=== PATIENT | female | born 1975 | race Hispanic/Latino ===

== ENCOUNTER 2016-04-06 08:36 | Emergency (ER) | payer MEDICARE ==
[2016-04-06 08:45] VITALS: BP 136/96
--- NOTE | 2016-04-06 14:20 | XRay Report ---
ROUTINE CHEST, TWO VIEWS: HISTORY: Cough. The trachea, heart, mediastinal contour, lung abdalla and bony thorax are unremarkable. IMPRESSION: Unremarkable chest x-ray.
--- NOTE | 2016-04-06 14:37 | Emergency Department Report ---
HPI - General Chief Complaint: Upper Respiratory Infection Time Seen by Provider: 04/06/16 13:03 - HPI HPI: 41-year-old female presents today with sore throat and cough for greater than 1 month. Patient states that his symptoms worsened 3 days ago and she started having chest pain associated with her cough. Primary care provider prescribed her a Z-Gregorio and cough medicine one month ago which relieved her symptoms but the symptoms worsened again. Patient is not treating herself with Ana-Mallory and Tylenol without relief. Patient states her was diagnosed with pneumonia and hospitalized a month ago. Denies fever, chills, shortness of breath, nausea, vomiting, abdominal pain. ED Past Medical Hx - Past Medical History Previous Medical History?: Yes Hx Hypertension: Yes (OFF MEDS) Hx Asthma: No Additional medical history: DDD (BACK). AFIB - Surgical History Past Surgical History?: Yes Hx Cholecystectomy: Yes Additional Surgical History: Hysterectomy, 2 . LAP BAND - Social History Smoking Status: Never Smoker Substance Use Type: Prescribed, Other - Medications Home Medications: Home Medications Medication Instructions Recorded Confirmed Last Taken Type Ferrous Sulfate [Iron Supplement] 325 mg PO TID 04/10/13 04/10/15 04/10/15 History ALPRAZolam [Xanax TAB] 1 mg PO BID #30 tablet 04/14/15 Unknown Rx Bisoprolol Fumarate [Zebeta] 10 mg PO DAILY #30 tab 04/14/15 Unknown Rx Digoxin [Lanoxin] 0.125 mg PO DAILY #30 tablet 04/14/15 Unknown Rx oxyCODONE /ACETAMINOPHEN [Percocet 1 tab PO Q6HR PRN #30 tablet 04/14/15 Unknown Rx 5/325 mg] Loratadine [Claritin] 10 mg PO DAILY #30 tablet 05/09/15 Unknown Rx Prednisone [predniSONE 10 mg 10 mg PO .TAPER #1 tab.ds.pk 05/09/15 Unknown Rx (6-Day Pack, 21 Tabs)] Promethazine /Codeine 5 ml PO Q6H PRN #150 ml 05/09/15 Unknown Rx [Phenergan/Codeine 6.25-10 mg/5 ml] Sulfamethoxazole/Trimethoprim 1 each PO BID #20 tablet 05/09/15 Unknown Rx [Bactrim DS TAB] Albuterol Sulfate [Ventolin HFA] 2 puff IH Q4H PRN #1 hfa.aer.ad 04/06/16 Unknown Rx Fluticasone (Nf) [Flovent Hfa(Nf)] 2 puff IH BID #1 puff 04/06/16 Unknown Rx guaiFENesin/DEXTROMETHORPHAN 1 each PO Q12H #30 tbmp.12hr 04/06/16 Unknown Rx [Mucinex Dm ER 1,200-60 mg Tab] ED Review of Systems ROS: Stated complaint: COUGHING WITH CHEST PAIN Other details as noted in HPI Constitutional: denies: chills, fever, malaise Eyes: denies: eye pain ENT: throat pain. denies: ear pain, congestion Respiratory: cough. denies: shortness of breath, wheezing Cardiovascular: denies: chest pain, palpitations Endocrine: no symptoms reported Gastrointestinal: denies: abdominal pain, nausea, vomiting Skin: denies: rash Neurological: denies: headache, weakness Physical Exam - Physical Exam Vital Signs: Vital Signs 04/06/16 08:41 Temperature 97.6 F Pulse Rate 79 Respiratory 18 Rate Blood Pressure 136/96 O2 Sat by Pulse 99 Oximetry Physical Exam: GENERAL: The patient is well-developed and well-nourished. Patient is in NAD. HEAD: Normocephalic. Atraumatic. EYES: PERRL. EARS: External auditory canals and tympanic membranes clear; hearing grossly intact. NOSE: Normal nasal mucosa with no nasal discharge. THROAT: No erythema, swelling or exudates. NECK: Supple, nontender, without lymphadenopathy. CHEST/LUNGS: Clear to auscultation throughout. HEART/CARDIOVASCULAR: Regular rate and rhythm. No murmurs, rubs or gallops. ABDOMEN: Abdomen is soft, nontender. Bowel sounds normoactive. No guarding or rebound tenderness. EXTREMITIES: Peripheral pulses intact. Capillary refill less than 2 seconds. ED Course Vital Signs 04/06/16 08:41 Temperature 97.6 F Pulse Rate 79 Respiratory 18 Rate Blood Pressure 136/96 O2 Sat by Pulse 99 Oximetry ED Medical Decision Making - Lab Data Vital Signs 04/06/16 08:41 Temperature 97.6 F Pulse Rate 79 Respiratory 18 Rate Blood Pressure 136/96 O2 Sat by Pulse 99 Oximetry - Radiology Data Radiology results: report reviewed Chest x-ray: The trachea, heart, mediastinal contour, lung abdalla and bony thorax are unremarkable. - Medical Decision Making 41-year-old female presents today with prolonged sore throat and cough. Her chest x-ray was unremarkable.Patient is in no acute distress at this time. She will be discharged home and is encouraged to follow up with a primary care provider. Will be sent home on albuterol, Flovent, Mucinex DM and is encouraged to return to the emergency room for any worsening symptoms. Critical care attestation.: If time is entered above; I have spent that time in minutes in the direct care of this critically ill patient, excluding procedure time. ED Disposition Clinical Impression: Bronchitis Disposition: DISCHARGED TO HOME OR SELFCARE Is pt being admited?: No Does the pt Need Aspirin: No Condition: Stable Instructions: Acute Bronchitis (ED) Additional Instructions: Follow with primary care provider. Return to the emergency department if symptoms worsen. Prescriptions: Fluticasone (Nf) [Flovent Hfa(Nf)] 2 puff IH BID #1 puff guaiFENesin/DEXTROMETHORPHAN [Mucinex Dm ER 1,200-60 mg Tab] 1 each PO Q12H #30 tbmp.12hr Albuterol Sulfate [Ventolin HFA] 2 puff IH Q4H PRN #1 hfa.aer.ad PRN Reason: Shortness Of Breath Referrals: ORLY ROSARIO MD [Primary Care Provider] - 3-5 Days [facility] [Outside] - 3-5 Days Forms: Work/School Release Form(ED) Time of Disposition: 14:38
== END 2016-04-06 14:49 | disposition home or self-care (01) ==
LOC: ED 08:36
DX: J40 Bronchitis, not specified as acute or chronic (principal); J02.9 Acute pharyngitis, unspecified; I10 Essential (primary) hypertension; I48.91 Unspecified atrial fibrillation
CPT/HCPCS: 71020; 99283

== ENCOUNTER 2017-04-02 10:51 | Emergency (ER) | payer MEDICARE ==
[2017-04-02] MEDS ORDERED: ASPIRIN PO ONE (12:24)
--- NOTE | 2017-04-02 12:31 | Emergency Department Report ---
ED Chest Pain HPI - General Chief Complaint: Chest Pain Stated Complaint: cough and pain with cough Time Seen by Provider: 04/02/17 12:31 Source: patient, RN notes reviewed, old records reviewed Mode of arrival: Ambulatory Limitations: No Limitations - History of Present Illness -: Gradual, week(s) Onset: during rest, during exertion Pain Location: other (epigastric radiating up both sides right and left chest) Severity: mild Severity scale (0 -10): 7 Quality: sharp Consistency: intermittent (pleuritic-type pain) Improves With: nothing, other Worsens With: other (deep breath) Context: other ( in January) re: denies: nausea, vomting, diaphoresis, dyspnea, sense of impending doom Other Symptoms: cough, palpitations. denies: fever, syncope, rash, acid taste in mouth, leg swelling, burping (this is an acute and chronic issue for the patient she's been told she has SVT and at one point was on digoxin) Treatments Prior to Arrival: none Aspirin use within the Past 7 Days: (0) No - Related Data On Oral Contraceptives: No Previous Rx's Medication Instructions Recorded Last Taken Type ALBUTEROL Inhaler [ProAir HFA 2 puff IH QID PRN #1 inhalation 04/02/17 Unknown Rx Inhaler] Benzonatate [Tessalon Perles] 100 mg PO Q8HR PRN #20 capsule 04/02/17 Unknown Rx Cephalexin [Keflex] 500 mg PO Q12HR #20 cap 04/02/17 Unknown Rx Fluticasone [Flonase] 1 spray NS QDAY #1 bottle 04/02/17 Unknown Rx predniSONE [Deltasone] 20 mg PO DAILY #5 tablet 04/02/17 Unknown Rx Allergies Allergy/AdvReac Type Severity Reaction Status Date / Time Penicillins Allergy Rash Verified 04/10/13 09:53 Heart Score - HEART Score History: Slightly suspicious EKG: Normal Age: < 45 Risk factors: 1-2 risk factors Troponin: < normal limit HEART Score: 1 - Critical Actions Critical Actions: 0-3 pts:0.9-1.7%risk of adverse cardiac event.Candidate for discharge ED Review of Systems ROS: Stated complaint: CHEST PAIN Other details as noted in HPI Comment: All other systems reviewed and negative Constitutional: no symptoms reported, see HPI. denies: fever Eyes: as per HPI ENT: as per HPI, throat pain, other Respiratory: no symptoms reported, cough Cardiovascular: as per HPI (sinus discomfort), other (sharp chest pain with deep breath) Endocrine: no symptoms reported Gastrointestinal: as per HPI Genitourinary: as per HPI Musculoskeletal: as per HPI Skin: as per HPI Neurological: as per HPI Psychiatric: as per HPI, other (recent stress with her 's ) Hematological/Lymphatic: as per HPI ED Past Medical Hx - Past Medical History Hx Hypertension: Yes (OFF MEDS) Hx Asthma: No Additional medical history: DDD (BACK). AFIB. Previous nuclear stress test noted in the EMR to be normal by cardiology. Past medical history of recurrent bronchitis - Surgical History Hx Cholecystectomy: Yes Additional Surgical History: Hysterectomy, 2 . LAP BAND - Social History Smoking Status: Never Smoker Substance Use Type: None - Medications Home Medications: Home Medications Medication Instructions Recorded Confirmed Last Taken Type ALBUTEROL Inhaler [ProAir HFA 2 puff IH QID PRN #1 inhalation 04/02/17 Unknown Rx Inhaler] Benzonatate [Tessalon Perles] 100 mg PO Q8HR PRN #20 capsule 04/02/17 Unknown Rx Cephalexin [Keflex] 500 mg PO Q12HR #20 cap 04/02/17 Unknown Rx Fluticasone [Flonase] 1 spray NS QDAY #1 bottle 04/02/17 Unknown Rx predniSONE [Deltasone] 20 mg PO DAILY #5 tablet 04/02/17 Unknown Rx ED Physical Exam - General Limitations: No Limitations General appearance: alert - Head Head exam: Present: atraumatic - Eye Eye exam: Present: PERRL - ENT ENT exam: Present: mucous membranes moist - Neck Neck exam: Present: normal inspection - Respiratory Respiratory exam: Present: normal lung sounds bilaterally. Absent: respiratory distress, wheezes, rales, rhonchi, stridor - Cardiovascular Cardiovascular Exam: Present: regular rate, normal rhythm, normal heart sounds, other. Absent: bradycardia, tachycardia, irregular rhythm, systolic murmur, diastolic murmur, rubs, gallop - GI/Abdominal GI/Abdominal exam: Present: soft (VSS echocardiogram noted with mild valvular disease and normal EF), normal bowel sounds. Absent: distended, tenderness, guarding - Rectal Rectal exam: Present: deferred - Extremities Exam Extremities exam: Present: normal inspection, full ROM, normal capillary refill. Absent: tenderness, pedal edema, joint swelling - Back Exam Back exam: Present: normal inspection, full ROM. Absent: tenderness, CVA tenderness (R) - Neurological Exam Neurological exam: Present: alert, oriented X3, CN II-XII intact, normal gait, reflexes normal - Psychiatric Psychiatric exam: Present: normal affect, normal mood - Skin Skin exam: Present: warm, dry, intact. Absent: normal color ED Course Vital Signs 04/02/17 04/02/17 11:06 11:11 Temperature 98.2 F 98.2 F Pulse Rate 96 H 78 Respiratory 18 Rate Blood Pressure 106/68 Blood Pressure 106/78 [Right] O2 Sat by Pulse 96 96 Oximetry - Reevaluation(s) Reevaluation #1: 04/02/17 15:29 Patient presents to the emergency room today with a history of cough for about a week. It is associated with sharp chest pain when she takes a deep breath. There is no purulence. There is no fever. She does report recent stress given that her February 14. She is alert and oriented. In no acute distress. Vital signs are stable. She has no tachycardia hypotension or fever. Patient states that the pain is epigastric in with a deep breath it radiates around the periphery of her lungs that she indicates with her hands up each of her sides. She does have a past medical history of tachycardia that she was on dig for but is no longer taking. We discussed follow-up with cardiology. She has had a stress test approximately a year ago that was normal. She denies previous [place] diabetes or CVA. She saw her PCP on Tuesday. She is currently on no home medications. Twelve-lead EKG is sinus rhythm without ST segment elevation or depression. Patient was placed on a inspector packager in fast track the whole time that she was here there is no ectopy HO April 2:00 R noted. Patient is ambulatory. She is taking by mouth. Chest x-ray noted normal. Labs noted. No increased WBC. End organ function normal per labs. On reexam patient states she is feeling fine. She was sitting in a stretcher playing with her phone. No chest pain shortness of breath or other complaints. We discussed patient's findings from today's exam evaluation. She will follow -up with primary care and cardiology next week. MYKE score - Myke Score Age > 65: (0) No Aspirin use within the Past 7 Days: (0) No 3 or more CAD Risk Factors: (1) Yes 2 or more Angina events in past 24 hrs: (1) Yes Known CAD with more than 50% Stenosis: (0) No Elevated Cardiac Markers: (0) No ST Deviation Greater than 0.5mm: (0) No MYKE Score: 2 ED Medical Decision Making - Lab Data Result diagrams: 04/02/17 12:35 04/02/17 12:35 - EKG Data Interpretation: no acute changes - Radiology Data Radiology results: report reviewed, image reviewed - Medical Decision Making See note. Twelve-lead EKG normal with no acute ST segment elevation or depression. Troponin negative. D-dimer negative X-ray negative - Differential Diagnosis rule out acute coronary syndrome rule out pneumonia rule out upper respirat Critical care attestation.: If time is entered above; I have spent that time in minutes in the direct care of this critically ill patient, excluding procedure time. ED Disposition Clinical Impression: Upper respiratory infection, Sinusitis, Bronchitis Disposition: - TO HOME OR SELFCARE Is pt being admited?: No Does the pt Need Aspirin: No Condition: Stable Instructions: Chronic Bronchitis (ED) Additional Instructions: rest Hydrate well Follow-up with primary care. See list of names below. Follow-up with cardiology. see names below. Cardiac diet low-sodium diet. Medications as ordered today. Referrals: PRERNA CHERY MD [Primary Care Provider] - 3-5 Days DARWIN DANIEL MD [Staff Physician] - 3-5 Days CHRISTINA ROGEL MD [Staff Physician] - 3-5 Days Time of Disposition: 15:24
[2017-04-02 13:17] LABS: BUN/Creatinine Ratio 15; Blood Urea Nitrogen 9 mg/dL (7-17); Calcium 9.5 mg/dL (8.4-10.2); Hemolysis Index 14
[2017-04-02 13:18] LABS: Lipase 20 units/L (13-60)
[2017-04-02 13:20] LABS: Alanine Aminotransferase 18 units/L (7-56); Albumin 4.3 g/dL (3.9-5)
[2017-04-02 13:26] LABS: Basophils # (Auto) 0.1 K/mm3 (0.0-0.1); Basophils % (Auto) 0.8 % (0.0-1.8); Eosinophils # (Auto) 0.1 K/mm3 (0.0-0.4); Eosinophils % (Auto) 1.7 % (0.0-4.3); Hematocrit 44.8 % (30.3-42.9); Hemoglobin 14.6 gm/dl (10.1-14.3); Lymphocytes # (Auto) 2.4 K/mm3 (1.2-5.4); Lymphocytes % (Auto) 28.6 % (13.4-35.0); Mean Corpuscular HGB Conc 33 % (30-34); Mean Corpuscular Volume 75 fl (79-97); Monocytes # (Auto) 0.4 K/mm3 (0.0-0.8); Monocytes % (Auto) 5.3 % (0.0-7.3); Platelet Count 266 K/mm3 (140-440); Red Blood Count 5.99 M/mm3 (3.65-5.03); Red Cell Distribution Width 17.5 % (13.2-15.2)
[2017-04-02] MEDS ORDERED: ZOFRAN ODT PO ONE (13:27)
[2017-04-02 13:28] LABS: Mean Corpuscular Hemoglobin 24 pg (28-32)
--- NOTE | 2017-04-02 13:29 | XRay Report ---
CHEST TWO VIEWS: 04/02/17 10:51:00 CLINICAL: Chest pain. COMPARISON: 04/06/16 FINDINGS: Normal heart and pulmonary vasculature. The lungs are normally expanded and clear.The bones and soft tissues are unremarkable. IMPRESSION: Normal chest.
[2017-04-02 13:37] LABS: INR 0.89 (0.87-1.13)
[2017-04-02 13:47] LABS: Bilirubin,Direct < 0.2 mg/dL (0-0.2)
[2017-04-02 14:30] LABS: Bacteria,Urine 1+ /HPF (Negative); Bilirubin,Urine NEG (Negative); Blood,Urine NEG (Negative); Color,Urine Yellow (Yellow); Nitrite,Urine NEG (Negative); Protein,Urine <15 mg/dL mg/dL (Negative); Urobilinogen,Urine < 2.0 mg/dL (<2.0)
[2017-04-02 14:31] LABS: HCG Qualitative,Urine Negative (Negative)
[2017-04-02] MEDS ORDERED: DELTASONE PO ONE (15:27)
[2017-04-02] MEDS ORDERED: KEFLEX PO ONE (15:28)
[2017-04-02 15:55] VITALS: BP 117/72
== END 2017-04-02 15:53 | disposition home or self-care (01) ==
LOC: ED 10:51
DX: J32.9 Chronic sinusitis, unspecified (principal); J40 Bronchitis, not specified as acute or chronic; I10 Essential (primary) hypertension; I48.91 Unspecified atrial fibrillation; Z90.49 Acquired absence of other specified parts of digestive tract; Z90.710 Acquired absence of both cervix and uterus; Z88.0 Allergy status to penicillin
CPT/HCPCS: 36415; 71046; 80048; 80074; 81001; 81025; 82150; 83690; 83735; 84484; 85025; 85379; 85610; 85730; 93005; 93010; 99284; J7512; Q0162

== ENCOUNTER 2018-05-21 18:36 | Inpatient (IN) | payer MEDICARE ==
--- NOTE | 2018-05-21 19:21 | Emergency Department Report ---
Chief Complaint: Dyspnea/Respdistress Stated Complaint: SOB/COLD SWEATS/RAPID HEARTRATE Time Seen by Provider: 05/21/18 19:16 - HPI History of Present Illness: Pt c/o palpitation, feeling cool/clammy, SOB substernal CP, feels like pressure intermittently for the last 3 days she states that she has exertional SOB and fatigue pt states she was diagnosed Afib and was previously on digoxin but has not taken it in a year Fhx of coronary disease pt states she failed a stress test 2 years ago and was supposed to follow up for a catheterization per patient but did not mildly tachycardic, otherwise VSS MSE complete MSE screening note: Focused history and physical exam performed. Due to findings the following was ordered: CP protocol ED Disposition for MSE Condition: Stable
[2018-05-21 20:03] LABS: Basophils # (Auto) 0.1 K/mm3 (0.0-0.1); Basophils % (Auto) 0.9 % (0.0-1.8); Eosinophils # (Auto) 0.1 K/mm3 (0.0-0.4); Eosinophils % (Auto) 1.3 % (0.0-4.3); Hematocrit 38.6 % (30.3-42.9); Hemoglobin 13.3 gm/dl (10.1-14.3); Lymphocytes # (Auto) 3.5 K/mm3 (1.2-5.4); Mean Corpuscular HGB Conc 35 % (30-34); Mean Corpuscular Volume 78 fl (79-97); Monocytes # (Auto) 0.7 K/mm3 (0.0-0.8); Monocytes % (Auto) 6.3 % (0.0-7.3); Platelet Count 295 K/mm3 (140-440); Red Blood Count 4.96 M/mm3 (3.65-5.03); Red Cell Distribution Width 14.8 % (13.2-15.2)
[2018-05-21 20:20] LABS: BUN/Creatinine Ratio 22; Blood Urea Nitrogen 13 mg/dL (7-17); Calcium 8.9 mg/dL (8.4-10.2); Hemolysis Index 7
--- NOTE | 2018-05-21 20:32 | Emergency Department Report ---
ED General Adult HPI - General Chief complaint: Dyspnea/Respdistress Stated complaint: SOB/COLD SWEATS/RAPID HEARTRATE Time Seen by Provider: 05/21/18 19:16 Source: patient Mode of arrival: Ambulatory Limitations: No Limitations - History of Present Illness Initial comments: Patient is a 43-year-old female past medical history of atrial fibrillation who presents with shortness of breath that has been going on and off since Tuesday. Patient states that it is worse with exertion nothing makes it better she is also complaining of some mild pain in her chest. She states that she was diagnosed with a pneumonia last week and she just recovered. She's been feeling short of breath ever since then. She has completed all of her antibiotics. Patient denies having any fever or chills she feels cold sweats when she walks and gets short of breath. Severity scale (0 -10): 8 - Related Data Previous Rx's Medication Instructions Recorded Last Taken Type Fluticasone [Flonase] 1 spray NS QDAY #1 bottle 04/02/17 Unknown Rx cephALEXin [Keflex] 500 mg PO Q12HR #20 cap 04/02/17 Unknown Rx ALBUTEROL Inhaler (OR & NICU) 2 puff IH QID PRN #1 inhalation 05/22/18 Unknown Rx [ProAir HFA Inhaler] Benzonatate [Tessalon Perles] 100 mg PO Q8HR PRN #20 capsule 05/22/18 Unknown Rx predniSONE [Deltasone] 20 mg PO DAILY #5 tablet 05/22/18 Unknown Rx Allergies Allergy/AdvReac Type Severity Reaction Status Date / Time Penicillins Allergy Rash Verified 04/10/13 09:53 ED Review of Systems ROS: Stated complaint: SOB/COLD SWEATS/RAPID HEARTRATE Other details as noted in HPI Constitutional: denies: chills, fever Eyes: denies: eye pain, eye discharge, vision change ENT: denies: ear pain, throat pain Respiratory: shortness of breath. denies: cough, wheezing Cardiovascular: denies: chest pain, palpitations Endocrine: no symptoms reported Gastrointestinal: denies: abdominal pain, nausea, diarrhea Genitourinary: denies: urgency, dysuria, discharge Musculoskeletal: denies: back pain, joint swelling, arthralgia Skin: denies: rash, lesions Neurological: denies: headache, weakness, paresthesias Psychiatric: denies: anxiety, depression Hematological/Lymphatic: denies: easy bleeding, easy bruising ED Past Medical Hx - Past Medical History Previous Medical History?: Yes Hx Hypertension: Yes (OFF MEDS) Hx Asthma: No Additional medical history: DDD (BACK). AFIB. Previous nuclear stress test noted in the EMR to be normal by cardiology. Past medical history of recurrent bronchitis - Surgical History Hx Cholecystectomy: Yes Additional Surgical History: Hysterectomy, 2 . LAP BAND - Social History Smoking Status: Never Smoker Substance Use Type: None - Medications Home Medications: Home Medications Medication Instructions Recorded Confirmed Last Taken Type Fluticasone [Flonase] 1 spray NS QDAY #1 bottle 04/02/17 Unknown Rx cephALEXin [Keflex] 500 mg PO Q12HR #20 cap 04/02/17 Unknown Rx ALBUTEROL Inhaler (OR & NICU) 2 puff IH QID PRN #1 inhalation 05/22/18 Unknown Rx [ProAir HFA Inhaler] Benzonatate [Tessalon Perles] 100 mg PO Q8HR PRN #20 capsule 05/22/18 Unknown Rx predniSONE [Deltasone] 20 mg PO DAILY #5 tablet 05/22/18 Unknown Rx ED Physical Exam - General Limitations: No Limitations General appearance: alert, in no apparent distress - Head Head exam: Present: atraumatic, normocephalic - Eye Eye exam: Present: normal appearance - ENT ENT exam: Present: mucous membranes moist - Neck Neck exam: Present: normal inspection - Respiratory Respiratory exam: Present: normal lung sounds bilaterally. Absent: respiratory distress - Cardiovascular Cardiovascular Exam: Present: regular rate, normal rhythm. Absent: systolic murmur, diastolic murmur, rubs, gallop - GI/Abdominal GI/Abdominal exam: Present: soft, normal bowel sounds - Extremities Exam Extremities exam: Present: normal inspection - Back Exam Back exam: Present: normal inspection - Neurological Exam Neurological exam: Present: alert, oriented X3 - Psychiatric Psychiatric exam: Present: normal affect, normal mood - Skin Skin exam: Present: warm, dry, intact, normal color. Absent: rash ED Course Vital Signs 05/21/18 05/21/18 05/21/18 19:12 20:39 20:45 Temperature 98.1 F Pulse Rate 102 H 91 H 82 Pulse Rate [ Anterior Bilateral Throughout] Respiratory 18 15 Rate Respiratory Rate [Anterior Bilateral Throughout] Blood Pressure 152/89 113/71 O2 Sat by Pulse 98 96 Oximetry 05/21/18 05/21/18 05/21/18 21:00 21:15 21:31 Temperature Pulse Rate 85 87 89 Pulse Rate [ Anterior Bilateral Throughout] Respiratory 15 15 16 Rate Respiratory Rate [Anterior Bilateral Throughout] Blood Pressure 130/76 113/71 113/71 O2 Sat by Pulse 95 97 98 Oximetry 05/21/18 05/21/18 05/21/18 22:07 22:08 22:15 Temperature Pulse Rate Pulse Rate [ 91 H Anterior Bilateral Throughout] Respiratory Rate Respiratory 16 Rate [Anterior Bilateral Throughout] Blood Pressure 113/71 113/71 O2 Sat by Pulse 98 97 Oximetry 05/21/18 05/21/18 05/21/18 22:31 22:45 23:08 Temperature Pulse Rate Pulse Rate [ 94 H Anterior Bilateral Throughout] Respiratory Rate Respiratory 14 Rate [Anterior Bilateral Throughout] Blood Pressure 113/71 113/71 O2 Sat by Pulse 98 98 Oximetry 05/22/18 00:11 Temperature Pulse Rate 109 H Pulse Rate [ Anterior Bilateral Throughout] Respiratory Rate Respiratory Rate [Anterior Bilateral Throughout] Blood Pressure 127/69 O2 Sat by Pulse Oximetry ED Medical Decision Making - Lab Data Result diagrams: 05/21/18 19:50 05/21/18 19:50 Lab Results 05/21/18 05/21/18 05/21/18 Range/Units 19:50 19:50 19:50 WBC 10.6 (4.5-11.0) K/mm3 RBC 4.96 (3.65-5.03) M/mm3 Hgb 13.3 (10.1-14.3) gm/dl Hct 38.6 (30.3-42.9) % MCV 78 L (79-97) fl MCH 27 L (28-32) pg MCHC 35 H (30-34) % RDW 14.8 (13.2-15.2) % Plt Count 295 (140-440) K/mm3 Lymph % (Auto) 33.0 (13.4-35.0) % [place] % (Auto) 6.3 (0.0-7.3) % Eos % (Auto) 1.3 (0.0-4.3) % Baso % (Auto) 0.9 (0.0-1.8) % Lymph # 3.5 (1.2-5.4) K/mm3 [place] # 0.7 (0.0-0.8) K/mm3 Eos # 0.1 (0.0-0.4) K/mm3 Baso # 0.1 (0.0-0.1) K/mm3 Seg Neutrophils % 58.5 (40.0-70.0) % Seg Neutrophils # 6.2 (1.8-7.7) K/mm3 D-Dimer 241.26 H (0-234) ng/mlDDU Sodium 139 (137-145) mmol/L Potassium 3.9 (3.6-5.0) mmol/L Chloride 99.6 (98-107) mmol/L Carbon Dioxide 27 (22-30) mmol/L Anion Gap 16 mmol/L BUN 13 (7-17) mg/dL Creatinine 0.6 L (0.7-1.2) mg/dL Estimated GFR > 60 ml/min BUN/Creatinine Ratio 22 % Glucose 101 H (65-100) mg/dL Calcium 8.9 (8.4-10.2) mg/dL Troponin T < 0.010 (0.00-0.029) ng/mL - EKG Data -: EKG Interpreted by Dc - EKG Data 05/22/18 00:13 EKG shows sinus tachycardia rate [address] segment elevation or T wave inversion normal axis - Radiology Data Radiology results: report reviewed, image reviewed CT angios chest: Shows no evidence of pulmonary embolism no evidence of pneumon ia or any infiltrate. - Medical Decision Making Cdx: Bronchitis Ddx: Arrythmia, NSTEMI, copd I will get blood work, ekg, ct scan, IV pain medication and IV antihypertensive. She is still feeling short of breath patient will be admitted to the hospitalist service. Critical care attestation.: If time is entered above; I have spent that time in minutes in the direct care of this critically ill patient, excluding procedure time. ED Disposition Clinical Impression: Shortness of breath Atrial fibrillation Qualifiers: Atrial fibrillation type: unspecified Qualified Code(s): I48.91 - Unspecified atrial fibrillation Chest pain Qualifiers: Chest pain type: unspecified Qualified Code(s): R07.9 - Chest pain, unspecified Disposition: TO HOME OR SELFCARE Is pt being admited?: Yes Does the pt Need Aspirin: No Condition: Stable Instructions: Palpitations (ED), Chest Pain (ED) Prescriptions: ALBUTEROL Inhaler (OR & NICU) [ProAir HFA Inhaler] 2 puff IH QID PRN #1 inhalation PRN Reason: Shortness Of Breath Benzonatate [Tessalon Perles] 100 mg PO Q8HR PRN #20 capsule PRN Reason: Cough predniSONE [Deltasone] 20 mg PO DAILY #5 tablet Referrals: FAHEEM BECKWITH MD [Staff Physician] - 3-5 Days SANJIV COWAN MD [Staff Physician] - 3-5 Days
--- NOTE | 2018-05-21 20:41 | XRay Report ---
XR CHEST ROUTINE 2V CLINICAL INDICATION: Female, 43 years of age. Chest Pain COMPARISON: March 2017. Findings: Frontal and lateral views of the chest were obtained. Cardiac silhouette is within normal limits. No focal consolidation or effusion. No pneumothorax. Visualized bony structures are grossly intact. Lap band ring projects over the upper abdomen and expected position. IMPRESSION: No acute findings. This document is electronically signed by Lolly De Oliveira DO., May 21 2018 08:39:24 PM ET
[2018-05-21] MEDS ORDERED: PROVENTIL IH ONE (20:59)
[2018-05-21] MEDS ORDERED: DECADRON IV ONE (21:01)
--- NOTE | 2018-05-21 22:29 | Cat Scan Report ---
CT ANGIO CHEST CLINICAL INDICATION: Female, 43 years of age. elevated d-dimer COMPARISON: None available. TECHNIQUE: Contiguous axial images were obtained. This CT exam was performed using one or more of th e following dose reduction techniques: automated exposure control, adjustment of the mA and/or kV acc ording to patient size, or use of iterative reconstruction technique. Additional sagittal and coronal reformatted images were obtained. IV contrast administered per institution protocol. Images are subm itted for interpretation. Maximum intensity projection images. FINDINGS: Heart normal in size. Thoracic aorta normal in caliber. No acute dissection or rupture. No pulmonary embolus. No pathologically enlarged intrathoracic or axillary lymph nodes. No focal consolidation or pleural effusion. Tracheobronchial tree is patent. Bony thorax is grossly intact. Prior cholecystectomy. (Ring is in place in expected position of the j unction of the distal esophagus and gastric cardia. Esophagus is relatively decompressed. IMPRESSION: 1. No pulmonary embolus. 2. No focal consolidation or pleural effusion. This document is electronically signed by Lolly De Oliveira DO., May 21 2018 10:27:52 PM ET
[2018-05-21] MEDS ORDERED: MORPHINE IV ONE (23:18)
[2018-05-21] MEDS ORDERED: LOPRESSOR IV ONE (23:18)
[2018-05-22] MEDS ORDERED: TYLENOL PO PRN (01:46)
[2018-05-22] MEDS ORDERED: ZOFRAN IV PRN (01:46)
[2018-05-22] MEDS ORDERED: SODIUM CHLORIDE FLUSH SYRINGE 10 ML IV PRN (01:46)
--- NOTE | 2018-05-22 01:50 | History and Physical Report ---
History of Present Illness Date of examination: 05/22/18 History of present illness: 43 oriented a history of hypertension, hyperlipidemia, A. fib, emergency room with complaints of chest pain. Pains in the epigastric area which she has been having for one month intermittently, she describes it as a pressure-like sensa tion, every 1-3 minutes, intensity 5/10, radiation, associated with nausea vomiting, shortness of breath, palpitation. She had a stress test one year ago at [facility] which was abnormal. She was advised to cardiac cath but refused at that time. Patient says she has not taken any medications in over one year Review of systems Constitutional: no weight loss, chills, fever Ears, eyes, nose, mouth and throat: no nasal congestion, no nasal discharge, no sinus pressure, no vision change, no red eye. Neck: No neck pain or rigidity. Cardiovascular: no palpitations, +chest pain Respiratory: no cough, +shortness of breath Gastrointestinal: no hematochezia, abdominal pain Genitourinary : no frequency , no hematuria Musculoskeletal: no joint swelling or muscle ache Integumentary: no rash, no pruritis Neurological: no parathesias, no focal weakness Endocrine: no cold or heat intolerance, no polyuria or polydipsia Hematologic/Lymphatic: no easy bruising, no easy bleeding, no gland swelling Allergic/Immunologic: no urticaria, no angioedema. PAST MEDICAL HISTORY:hypertension, hyperlipidemia, A. fib, PAST SURGICAL HISTORY: Cholecystectomy, , hysterectomy, lap and SOCIAL HISTORY: Denies alcohol, drugs, tobacco FAMILY HISTORY: Hypertension Medications and Allergies Allergies Allergy/AdvReac Type Severity Reaction Status Date / Time Penicillins Allergy Rash Verified 04/10/13 09:53 Home Medications Medication Instructions Recorded Confirmed Last Taken Type Fluticasone [Flonase] 1 spray NS QDAY #1 bottle 04/02/17 Unknown Rx cephALEXin [Keflex] 500 mg PO Q12HR #20 cap 04/02/17 Unknown Rx ALBUTEROL Inhaler (OR & NICU) 2 puff IH QID PRN #1 inhalation 05/22/18 Unknown Rx [ProAir HFA Inhaler] Benzonatate [Tessalon Perles] 100 mg PO Q8HR PRN #20 capsule 05/22/18 Unknown Rx predniSONE [Deltasone] 20 mg PO DAILY #5 tablet 05/22/18 Unknown Rx Active Meds: Active Medications Acetaminophen (Tylenol) 650 mg PO Q4H PRN PRN Reason: Pain MILD(1-3)/Fever >100.5/LOYA Enoxaparin Sodium (Lovenox) 30 mg SUB-Q QDAY RENÉE Morphine Sulfate (Morphine) 2 mg IV Q4H PRN PRN Reason: Pain, Moderate (4-6) Ondansetron HCl (Zofran) 4 mg IV Q8H PRN PRN Reason: Nausea And Vomiting Sodium Chloride (Sodium Chloride Flush Syringe 10 Ml) 10 ml IV BID RENÉE Sodium Chloride (Sodium Chloride Flush Syringe 10 Ml) 10 ml IV PRN PRN PRN Reason: LINE FLUSH Exam - Physical Exam Narrative exam: General Apperance: The patient lying in bed, breathing comfortable HEENT: Normocephalic, atraumatic. Pupils equally round and reactive to light, EOMI, no sclericterus or JVD or thyromegaly or nodule. , no carotid bruit, mucous membranes moist, no exudate or erythema Heart: S1-S2, regular is rhythm Lungs: Clear to auscultation bilaterally, breathing comfortable Abdomen: Positive bowel sounds, soft, nontender, nondistended, no organomegaly Extremities: No edema cyanosis clubbing Skin: no rash, nodule, warm and dry Neuro: cranial nerves 2-12 intact, speech is fluent, motor/sensory intact - Constitutional Vitals: Temp Pulse Resp BP Pulse Ox 98.1 F 82 19 118/69 93 05/21/18 19:12 05/22/18 01:45 05/22/18 01:45 05/22/18 01:45 05/22/18 01:45 Results - Labs CBC & Chem 7: 05/22/18 04:17 05/22/18 04:17 Labs: Abnormal lab results 05/21/18 05/21/18 05/21/18 Range/Units 19:50 19:50 19:50 MCV 78 L (79-97) fl MCH 27 L (28-32) pg MCHC 35 H (30-34) % D-Dimer 241.26 H (0-234) ng/mlDDU Creatinine 0.6 L (0.7-1.2) mg/dL Glucose 101 H (65-100) mg/dL - Imaging and Cardiology EKG: image reviewed Chest x-ray: image reviewed CT scan - chest: report reviewed Assessment and Plan Assessment Chest pain Hyperlipidemia History of A. fib History of Hypertension Plan Admit to medicine Check cardiac enzymes, consult cardiology Start aspirin, IV morphine, DVT prophylaxis
[2018-05-22 02:35] LABS: Creatine Kinase MB 1.6 ng/mL (0.0-4.0)
[2018-05-22] MEDS: MORPHINE IV PRN ×4 (03:10→18:53)
[2018-05-22 04:40] LABS: Basophils # (Auto) 0.1 K/mm3 (0.0-0.1); Basophils % (Auto) 0.7 % (0.0-1.8); Hematocrit 38.6 % (30.3-42.9); Hemoglobin 13.1 gm/dl (10.1-14.3); Lymphocytes # (Auto) 1.1 K/mm3 (1.2-5.4); Lymphocytes % (Auto) 10.3 % (13.4-35.0); Mean Corpuscular HGB Conc 34 % (30-34); Mean Corpuscular Volume 78 fl (79-97); Monocytes # (Auto) 0.1 K/mm3 (0.0-0.8); Monocytes % (Auto) 0.8 % (0.0-7.3); Platelet Count 264 K/mm3 (140-440); Red Blood Count 4.94 M/mm3 (3.65-5.03); Red Cell Distribution Width 14.9 % (13.2-15.2)
[2018-05-22 04:44] LABS: BUN/Creatinine Ratio 24; Blood Urea Nitrogen 12 mg/dL (7-17); Hemolysis Index 31
[2018-05-22 08:31] LABS: Creatine Kinase MB 1.6 ng/mL (0.0-4.0)
[2018-05-22] MEDS: LOVENOX SUB-Q SCH (09:31)
[2018-05-22] MEDS: BABY ASPIRIN PO SCH (09:31)
[2018-05-22] MEDS: SODIUM CHLORIDE FLUSH SYRINGE 10 ML IV SCH ×2 (09:39→21:59)
[2018-05-22] MEDS ORDERED: LOVENOX SUB-Q SCH (10:00)
--- NOTE | 2018-05-22 10:25 | Consultation ---
<WALE DELANEY - Last Filed: 05/22/18 10:21> History of Present Illness Consult date: 05/22/18 Consult reason: chest pain History of present illness: Patient is a 43 year old who presented with shortness of breath, palpitations and chest pain. Cardiac consultation was requested. Patient reports symptoms has been intermittent for several days. She denies dizziness. There was no syncope. Chest x-ray is negative and a chest CT scan is negative for pulmonary embolism. Cardiac enzymes are negative and ECG shows mild sinus tachycardia, rate 104. No acute ischemic changes. Medications and Allergies Allergies Allergy/AdvReac Type Severity Reaction Status Date / Time Penicillins Allergy Rash Verified 04/10/13 09:53 Home Medications Medication Instructions Recorded Confirmed Last Taken Type Fluticasone [Flonase] 1 spray NS QDAY #1 bottle 04/02/17 Unknown Rx cephALEXin [Keflex] 500 mg PO Q12HR #20 cap 04/02/17 Unknown Rx RX: ALBUTEROL Inhaler (OR & NICU) 2 puff IH QID PRN #1 inhalation 05/22/18 Unknown Rx [ProAir HFA Inhaler] RX: Benzonatate [Tessalon Perles] 100 mg PO Q8HR PRN #20 capsule 05/22/18 Unknown Rx RX: predniSONE [Deltasone] 20 mg PO DAILY #5 tablet 05/22/18 Unknown Rx Active Meds: Active Medications Acetaminophen (Tylenol) 650 mg PO Q4H PRN PRN Reason: Pain MILD(1-3)/Fever >100.5/LOYA Aspirin (Baby Aspirin) 81 mg PO QDAY [facility] Last Admin: 05/22/18 09:31 Dose: 81 mg Documented by: Enoxaparin Sodium (Lovenox) 40 mg SUB-Q QDAY@1000 [facility] Last Admin: 05/22/18 09:31 Dose: 40 mg Documented by: Morphine Sulfate (Morphine) 2 mg IV Q4H PRN PRN Reason: Pain, Moderate (4-6) Last Admin: 05/22/18 09:32 Dose: 2 mg Documented by: Ondansetron HCl (Zofran) 4 mg IV Q8H PRN PRN Reason: Nausea And Vomiting Sodium Chloride (Sodium Chloride Flush Syringe 10 Ml) 10 ml IV BID [facility] Last Admin: 05/22/18 09:39 Dose: 10 ml Documented by: Sodium Chloride (Sodium Chloride Flush Syringe 10 Ml) 10 ml IV PRN PRN PRN Reason: LINE FLUSH Physical Examination Vital Signs Temp Pulse Resp BP Pulse Ox 98.1 F 102 H 18 152/89 98 05/21/18 19:12 05/21/18 19:12 05/21/18 19:12 05/21/18 19:12 05/21/18 19:12 General appearance: no acute distress HEENT: Positive: PERRL Neck: Positive: trachea midline Cardiac: Positive: Reg Rate and Rhythm Lungs: Positive: Decreased Breath Sounds Neuro: Positive: Grossly Intact Extremities: Absent: edema Results 05/22/18 04:17 05/22/18 04:17 Cardiac Enzymes 05/22/18 05/22/18 Range/Units 02:02 07:48 CK-MB (CK-2) 1.6 1.6 (0.0-4.0) ng/mL CBC 05/21/18 05/22/18 Range/Units 19:50 04:17 WBC 10.6 10.2 (4.5-11.0) K/mm3 RBC 4.96 4.94 (3.65-5.03) M/mm3 Hgb 13.3 13.1 (10.1-14.3) gm/dl Hct 38.6 38.6 (30.3-42.9) % Plt Count 295 264 (140-440) K/mm3 Lymph # 3.5 1.1 L (1.2-5.4) K/mm3 [place] # 0.7 0.1 (0.0-0.8) K/mm3 Eos # 0.1 0.0 (0.0-0.4) K/mm3 Baso # 0.1 0.1 (0.0-0.1) K/mm3 Comprehensive Metabolic Panel 05/21/18 05/22/18 Range/Units 19:50 04:17 Sodium 139 137 (137-145) mmol/L Potassium 3.9 4.4 (3.6-5.0) mmol/L Chloride 99.6 100.4 (98-107) mmol/L Carbon Dioxide 27 22 (22-30) mmol/L BUN 13 12 (7-17) mg/dL Creatinine 0.6 L 0.5 L (0.7-1.2) mg/dL Glucose 101 H 185 H (65-100) mg/dL Calcium 8.9 9.0 (8.4-10.2) mg/dL Assessment and Plan Chest pain, atypical negative MPI 03/2015 normal LVEF by echo 03/2015 negative cardiac enzymes ECG is benign Shortness of breath Palpitations no events on telemetry thus far Recommendations: Echocardiogram for LVEF reassessment. Pre-discharge persantine thallium stress test for further cardiac evaluation. <PRERNA VANCE - Last Filed: 05/22/18 15:45> Medications and Allergies Active Meds: Active Medications Acetaminophen (Tylenol) 650 mg PO Q4H PRN PRN Reason: Pain MILD(1-3)/Fever >100.5/LOYA Aspirin (Baby Aspirin) 81 mg PO QDAY [facility] Last Admin: 05/22/18 09:31 Dose: 81 mg Documented by: Enoxaparin Sodium (Lovenox) 40 mg SUB-Q QDAY@1000 [facility] Last Admin: 05/22/18 09:31 Dose: 40 mg Documented by: Morphine Sulfate (Morphine) 2 mg IV Q4H PRN PRN Reason: Pain, Moderate (4-6) Last Admin: 05/22/18 14:33 Dose: 2 mg Documented by: Ondansetron HCl (Zofran) 4 mg IV Q8H PRN PRN Reason: Nausea And Vomiting Sodium Chloride (Sodium Chloride Flush Syringe 10 Ml) 10 ml IV BID [facility] Last Admin: 05/22/18 09:39 Dose: 10 ml Documented by: Sodium Chloride (Sodium Chloride Flush Syringe 10 Ml) 10 ml IV PRN PRN PRN Reason: LINE FLUSH Physical Examination Vital Signs Temp Pulse Resp BP Pulse Ox 98.1 F 102 H 18 152/89 98 05/21/18 19:12 05/21/18 19:12 05/21/18 19:12 05/21/18 19:12 05/21/18 19:12 Results 05/22/18 04:17 05/22/18 04:17 Cardiac Enzymes 05/22/18 05/22/18 Range/Units 02:02 07:48 CK-MB (CK-2) 1.6 1.6 (0.0-4.0) ng/mL CBC 05/21/18 05/22/18 Range/Units 19:50 04:17 WBC 10.6 10.2 (4.5-11.0) K/mm3 RBC 4.96 4.94 (3.65-5.03) M/mm3 Hgb 13.3 13.1 (10.1-14.3) gm/dl Hct 38.6 38.6 (30.3-42.9) % Plt Count 295 264 (140-440) K/mm3 Lymph # 3.5 1.1 L (1.2-5.4) K/mm3 [place] # 0.7 0.1 (0.0-0.8) K/mm3 Eos # 0.1 0.0 (0.0-0.4) K/mm3 Baso # 0.1 0.1 (0.0-0.1) K/mm3 Comprehensive Metabolic Panel 05/21/18 05/22/18 Range/Units 19:50 04:17 Sodium 139 137 (137-145) mmol/L Potassium 3.9 4.4 (3.6-5.0) mmol/L Chloride 99.6 100.4 (98-107) mmol/L Carbon Dioxide 27 22 (22-30) mmol/L BUN 13 12 (7-17) mg/dL Creatinine 0.6 L 0.5 L (0.7-1.2) mg/dL Glucose 101 H 185 H (65-100) mg/dL Calcium 8.9 9.0 (8.4-10.2) mg/dL Assessment and Plan The patient is a 43 year old female with a complaint of chest pain with associated palpitations. The patient states that she has a history of atrial fibrillation diagnosed at [facility]; however, she is not on any mediations consistent with this diagnosis. Additionally, I do not see atrial fibrillation present on any of her EKG within this system. Will plan to obtain medical records. Check echo. Plan for stress test. follow telemetry.
--- NOTE | 2018-05-22 11:16 | Event Note ---
Date: 05/22/18 Patient was admitted early this morning with chest pain shortness of breath Also has history of A. fib and hypertension dyslipidemia Cardiology consulted, possible stress test prior to discharge Medical records reviewed, continue current management
[2018-05-22] MEDS ORDERED: ATIVAN PO ONE (21:50)
[2018-05-23] MEDS ORDERED: LEXISCAN IV ONE ×2 (08:26→08:30)
[2018-05-23] MEDS: BABY ASPIRIN PO SCH (09:57)
[2018-05-23] MEDS: LOVENOX SUB-Q SCH (09:57)
[2018-05-23] MEDS: MORPHINE IV PRN (10:01)
[2018-05-23] MEDS: SODIUM CHLORIDE FLUSH SYRINGE 10 ML IV SCH (10:06)
[2018-05-23 11:39] VITALS: BP 132/76
--- NOTE | 2018-05-23 12:16 | Event Note ---
Date: 05/23/18 Atypical chest pain Normal lexiscan MPI Normal LVEF CTA chest - no PE Neg Araseli ? Paroxysmal atrial fibrillation No evidence of afib on tele during this admission Recommendations: May go home cardiac [place] Follow-up as outpatient
--- NOTE | 2018-05-23 12:27 | Discharge Summary ---
Providers - Providers Date of Admission: 05/22/18 01:46 Date of discharge: 05/23/18 Attending physician: BALJIT GAN 05/22/18 02:51 Consult to Physician [CONS] Routine Comment: Consulting Provider: VIRGILIO LAKE Physician Instructions: Reason For Exam: cp Primary care physician: ORLY ROSARIO Hospitalization Reason for admission: chest pain Condition: Stable Pertinent studies: Normal lexiscan MPI Normal LVEF CTA chest - no PE Neg Araseli, CXR: normal Hospital course: 43-year-old morbidly obese female patient was admitted through emergency room with worsening shortness of breath palpitations and chest pain Patient was initially evaluated symptomatically managed, subsequently evaluated by cardiology, underwent a negative stress test The patient had questionable paroxysmal A. fib, evaluated by cardiology no findings noted., Patient's chest pain probably noncardiac secondary to GERD Advise Protonix, Patient also counseled weight reduction when medically stable Today patient is comfortable no new complaints vital signs stable physical examination unremarkable Clear by cardiology for discharge and follow-up for further evaluation should she have recurrent chest pain Patient is hemodynamically and clinically stable at discharge Discharge diagnosis; Atypical chest pain; probably noncardiac, stress test negative Gastroesophageal reflux disease; probably causing chest pain, Protonix Morbid obesity; counseled weight reduction and medically stable Possible paroxysmal A. fib; cardiology reviewed on the strips, no evidence of A. fib Further evaluation as outpatient Disposition: - TO HOME OR SELFCARE Time spent for discharge: 31 min Core Measure Documentation - Palliative Care Palliative Care/ Comfort Measures: Not Applicable - Core Measures Any of the following diagnoses?: none Exam - Constitutional Vitals: Temp Pulse Resp BP Pulse Ox 98.3 F 73 18 132/76 97 05/23/18 04:18 05/23/18 04:18 05/23/18 04:18 05/23/18 08:52 05/23/18 04:18 General appearance: Present: no acute distress, well-nourished - EENT Eyes: Present: PERRL, EOM intact - Neck Neck: Present: supple, normal ROM - Respiratory Respiratory effort: normal Respiratory: negative: rales, rhonchi, wheezing - Cardiovascular Rhythm: regular Heart Sounds: Present: S1 & S2 - Extremities Extremities: no ischemia, No edema - Abdominal General gastrointestinal: Present: soft, non-tender, non-distended, normal bowel sounds - Integumentary Integumentary: Present: clear, warm - Musculoskeletal Musculoskeletal: strength equal bilaterally - Psychiatric Psychiatric: appropriate mood/affect, cooperative - Neurologic Neurologic: CNII-XII intact, moves all extremities Plan Activity: advance as tolerated Additional Instructions: If you have chest pain or shortness of breath contact M.D. or go to emergency room Follow up with: FAHEEM BECKWITH MD [Staff Physician] - 3-5 Days SANJIV COWAN MD [Staff Physician] - 3-5 Days Prescriptions: ALBUTEROL Inhaler (OR & NICU) [ProAir HFA Inhaler] 2 puff IH QID PRN #1 inhalation PRN Reason: Shortness Of Breath Benzonatate [Tessalon Perles] 100 mg PO Q8HR PRN #20 capsule PRN Reason: Cough Famotidine [Pepcid] 20 mg PO BID #20 tablet predniSONE [Deltasone] 20 mg PO DAILY #5 tablet
--- NOTE | 2018-05-23 15:22 | Treadmill Report ---
ORDERING PHYSICIAN: Valentina Louie MD INDICATION: Palpitations and shortness of breath. FINDINGS: There is no scintigraphic evidence of myocardial ischemia. The left ventricle is normal in size and systolic function. The left ventricular ejection fraction is measured at 74%. There is normal wall motion and wall thickening on gated imaging. CONCLUSION: Normal perfusion scan. JOB# [id number] LORIN/RHEA
== END 2018-05-23 15:30 | disposition home or self-care (01) | DRG 392 ==
LOC: ED 18:36 → 4A 05-22 01:46
PROVIDERS: ADMIT Internal Medicine; ATTEND Internal Medicine
DX: K21.9 Gastro-esophageal reflux disease without esophagitis (principal); Z68.41 Body mass index [BMI] 40.0-44.9, adult; E66.01 Morbid (severe) obesity due to excess calories; I48.0 Paroxysmal atrial fibrillation; I10 Essential (primary) hypertension; E78.5 Hyperlipidemia, unspecified; Z71.3 Dietary counseling and surveillance; Z88.0 Allergy status to penicillin; Z79.899 Other long term (current) drug therapy; Z90.710 Acquired absence of both cervix and uterus; Z90.49 Acquired absence of other specified parts of digestive tract; Z82.49 Family history of ischemic heart disease and other diseases of the circulatory system; Z87.01 Personal history of pneumonia (recurrent); Z98.84 Bariatric surgery status
CPT/HCPCS: 36415; 71046; 71275; 78452; 80048; 82550; 82553; 84484; 85025; 85379; 93005; 93010; 93017; 93306; 94640; 96374; 96375; 96376; G0378; A9502; J1100; J1650; J2270; J2785; Q9967

== ENCOUNTER 2019-01-07 04:26 | Emergency (ER) | payer MEDICAID, MEDICARE ==
[2019-01-07 05:29] LABS: Basophils # (Auto) 0.1 K/mm3 (0.0-0.1); Basophils % (Auto) 0.8 % (0.0-1.8); Eosinophils # (Auto) 0.3 K/mm3 (0.0-0.4); Eosinophils % (Auto) 3.4 % (0.0-4.3); Hematocrit 40.3 % (30.3-42.9); Hemoglobin 13.4 gm/dl (10.1-14.3); Lymphocytes # (Auto) 2.9 K/mm3 (1.2-5.4); Lymphocytes % (Auto) 34.3 % (13.4-35.0); Mean Corpuscular HGB Conc 33 % (30-34); Mean Corpuscular Volume 77 fl (79-97); Monocytes # (Auto) 0.7 K/mm3 (0.0-0.8); Monocytes % (Auto) 7.8 % (0.0-7.3); Platelet Count 269 K/mm3 (140-440); Red Cell Distribution Width 16.4 % (13.2-15.2)
[2019-01-07 05:53] LABS: Alanine Aminotransferase 29 units/L (7-56); Albumin 4.2 g/dL (3.9-5); BUN/Creatinine Ratio 17; Blood Urea Nitrogen 12 mg/dL (7-17); Calcium 9.2 mg/dL (8.4-10.2); Hemolysis Index 6
--- NOTE | 2019-01-07 06:01 | XRay Report ---
ABDOMEN 2 VIEW(S) INDICATION / CLINICAL INFORMATION: Abd pain. COMPARISON: None available. FINDINGS: TUBES / LINES: None. BOWEL GAS PATTERN: No significant abnormality. FREE AIR / EXTRALUMINAL GAS: None seen. ADDITIONAL FINDINGS: Gastric lap band IMPRESSION: 1. No significant abnormality. Signer Name: Mateus Auguste MD Signed: 01/07/2019 5:57 AM Workstation Name: [id number]
[2019-01-07] MEDS ORDERED: PERCOCET 5/325 PO ONE (06:26)
[2019-01-07 06:44] LABS: Bilirubin,Urine NEG (Negative); Blood,Urine NEG (Negative); Color,Urine Straw (Yellow); Protein,Urine <15 mg/dL mg/dL (Negative); RBC,Urine < 1.0 /HPF (0.0-6.0); Urobilinogen,Urine < 2.0 mg/dL (<2.0)
[2019-01-07] MEDS ORDERED: TYLENOL PO ONE (07:26)
[2019-01-07] MEDS ORDERED: CARAFATE PO ONE (07:26)
[2019-01-07] MEDS ORDERED: PEPCID PO ONE (07:26)
[2019-01-07 07:36] LABS: HCG Qualitative,Urine Negative (Negative)
--- NOTE | 2019-01-07 07:38 | Emergency Department Report ---
ED General Adult HPI - General Chief complaint: Abdominal Pain Stated complaint: R ARM/LEG PAIN/ABD PAIN Time Seen by Provider: 01/07/19 07:02 Source: patient, RN notes reviewed, old records reviewed Mode of arrival: Ambulatory Limitations: No Limitations - History of Present Illness Initial comments: This is a 43-year-old female. The patient's primary care doctor is Dr. Weeks Her bariatric surgeon is Dr. Vail; she had a gastric band placed a few years ago. The patient presents to the ER today with a complaint of subxiphoid pain that increases after eating and drinking that radiates down to her lower abdominal region. This is associated with nausea. There is no vomiting. There are no urinary symptoms. There is no chest pain. There is no shortness of breath. The patient denies DVT and pulmonary embolism risk factors. She had a normal nuclear stress test at this hospital May 2018. Her symptoms are resolved at this time. They're typically associated with eating. She reports that at some point in the past, it was suggested that she may have IBS, however, she does not carry a formal diagnosis that she is aware of. The patient endorses a secondary complaint of nontraumatic right trapezius pain and right-sided paracervical pain that radiated down the right upper extremity. This is intermittent, and present over the past few days. There is no endorsement of extremity weakness. There are no lower extremity complaints. There is no bladder or bowel retention or incontinence. There is no saddle anesthesia. There is no recent chiropractic manipulation, and there are no recent car accidents or fender benders that the patient is aware of. -: Gradual Location: abdomen, right, upper extremity Severity scale (0 -10): 10 Quality: aching Consistency: intermittent Improves with: other Worsens with: other - Related Data Previous Rx's Medication Instructions Recorded Last Taken Type Fluticasone [Flonase] 1 spray NS QDAY #1 bottle 04/02/17 Unknown Rx cephALEXin [Keflex] 500 mg PO Q12HR #20 cap 04/02/17 Unknown Rx ALBUTEROL Inhaler (OR & NICU) 2 puff IH QID PRN #1 inhalation 05/22/18 Unknown Rx [ProAir HFA Inhaler] Benzonatate [Tessalon Perles] 100 mg PO Q8HR PRN #20 capsule 05/22/18 Unknown Rx predniSONE [Deltasone] 20 mg PO DAILY #5 tablet 05/22/18 Unknown Rx Famotidine [Pepcid] 20 mg PO BID #20 tablet 05/23/18 Unknown Rx Acetaminophen [Non-Aspirin Extra 500 mg PO Q6HR PRN #30 tablet 01/07/19 Unknown Rx Strength] Famotidine [Pepcid] 20 mg PO BID #60 tablet 01/07/19 Unknown Rx Metoclopramide [Reglan] 10 mg PO QID PRN #30 tablet 01/07/19 Unknown Rx Allergies Allergy/AdvReac Type Severity Reaction Status Date / Time Penicillins Allergy Rash Verified 04/10/13 09:53 ED Review of Systems ROS: Stated complaint: R ARM/LEG PAIN/ABD PAIN Other details as noted in HPI Constitutional: denies: fever Eyes: denies: eye discharge ENT: denies: congestion Respiratory: denies: shortness of breath, wheezing Cardiovascular: denies: syncope Gastrointestinal: abdominal pain, nausea. denies: vomiting, hematemesis, melena, hematochezia Genitourinary: denies: dysuria Musculoskeletal: myalgia Skin: denies: lesions Neurological: paresthesias Hematological/Lymphatic: denies: easy bleeding ED Past Medical Hx - Past Medical History Previous Medical History?: Yes Hx Hypertension: Yes Hx Heart Attack/AMI: No Hx Congestive Heart Failure: Yes Hx Diabetes: No Hx Deep Vein Thrombosis: No Hx Pulmonary Embolism: No Hx Arthritis: No Hx Asthma: No Hx COPD: No Hx Tuberculosis: No Additional medical history: DDD (BACK). AFIB. Previous nuclear stress test noted in the EMR to be normal by cardiology. Past medical history of recurrent bronchitis - Surgical History Past Surgical History?: Yes Hx Coronary Stent: No Hx Pacemaker: No Hx Internal Defibrillator: No Hx Cholecystectomy: Yes Additional Surgical History: Hysterectomy, 2 . LAP BAND - Social History Smoking Status: Never Smoker Substance Use Type: None - Medications Home Medications: Home Medications Medication Instructions Recorded Confirmed Last Taken Type Fluticasone [Flonase] 1 spray NS QDAY #1 bottle 04/02/17 Unknown Rx cephALEXin [Keflex] 500 mg PO Q12HR #20 cap 04/02/17 Unknown Rx ALBUTEROL Inhaler (OR & NICU) 2 puff IH QID PRN #1 inhalation 05/22/18 Unknown Rx [ProAir HFA Inhaler] Benzonatate [Tessalon Perles] 100 mg PO Q8HR PRN #20 capsule 05/22/18 Unknown Rx predniSONE [Deltasone] 20 mg PO DAILY #5 tablet 05/22/18 Unknown Rx Famotidine [Pepcid] 20 mg PO BID #20 tablet 05/23/18 Unknown Rx Acetaminophen [Non-Aspirin Extra 500 mg PO Q6HR PRN #30 tablet 01/07/19 Unknown Rx Strength] Famotidine [Pepcid] 20 mg PO BID #60 tablet 01/07/19 Unknown Rx Metoclopramide [Reglan] 10 mg PO QID PRN #30 tablet 01/07/19 Unknown Rx ED Physical Exam - General Limitations: No Limitations General appearance: alert, in no apparent distress, obese - Head Head exam: Present: atraumatic, normocephalic - Eye Eye exam: Present: normal appearance, EOMI. Absent: nystagmus - ENT ENT exam: Present: normal exam, normal orophraynx, mucous membranes moist, normal external ear exam - Neck Neck exam: Present: normal inspection, full ROM. Absent: tenderness, meningismus - Respiratory Respiratory exam: Present: normal lung sounds bilaterally. Absent: respiratory distress - Cardiovascular Cardiovascular Exam: Present: regular rate, normal rhythm, normal heart sounds. Absent: bradycardia, tachycardia, irregular rhythm, systolic murmur, diastolic murmur, rubs, gallop - GI/Abdominal GI/Abdominal exam: Present: soft. Absent: distended, tenderness, guarding, rebound, rigid, pulsatile mass - Extremities Exam Extremities exam: Present: normal inspection, full ROM, other (2+ pulses noted in the bilateral upper, lower extremities. There is no long bone tenderness. Musculoskeletal compartments are soft. The pelvis is stable.). Absent: pedal edema, joint swelling, calf tenderness - Back Exam Back exam: Present: normal inspection, full ROM. Absent: tenderness, CVA tenderness (R), CVA tenderness (L), paraspinal tenderness, vertebral tenderness - Neurological Exam Neurological exam: Present: alert, oriented X3, other (there is no facial droop. The tongue is midline. Extraocular movements are intact bilaterally. Patient speaking in full complete sentences. Shoulder shrug is intact bilaterally. H earing is grossly intact bilaterally. Visual acuity intact to finger counting and color perception at a close distance. 5/5 strength 4 extremities. Sensation intact to light touch in 4 extremities.). Absent: motor sensory deficit (sensation is intact to light touch, Pentz, proprioception bilateral upper, lower extremities.) - Psychiatric Psychiatric exam: Present: normal affect, normal mood - Skin Skin exam: Present: warm, dry, intact, normal color. Absent: rash ED Course Vital Signs 01/07/19 01/07/19 01/07/19 04:29 04:55 05:00 Temperature 97.9 F 97.9 F Pulse Rate 102 H 88 93 H Respiratory 18 12 15 Rate Blood Pressure 140/86 129/72 Blood Pressure 129/72 [Left] O2 Sat by Pulse 98 97 97 Oximetry 01/07/19 01/07/19 01/07/19 05:15 05:31 05:45 Temperature Pulse Rate 86 85 81 Respiratory 13 20 18 Rate Blood Pressure 139/83 137/84 131/88 Blood Pressure [Left] O2 Sat by Pulse 98 98 97 Oximetry 01/07/19 01/07/19 01/07/19 06:07 06:15 06:29 Temperature Pulse Rate 80 90 Respiratory 12 9 L 18 Rate Blood Pressure 125/82 117/67 Blood Pressure [Left] O2 Sat by Pulse 97 Oximetry 01/07/19 01/07/19 01/07/19 06:30 06:45 07:00 Temperature Pulse Rate 91 H 81 82 Respiratory 17 13 13 Rate Blood Pressure 121/81 134/81 119/72 Blood Pressure [Left] O2 Sat by Pulse 99 99 99 Oximetry 01/07/19 01/07/19 01/07/19 07:15 07:30 07:45 Temperature Pulse Rate 107 H 84 82 Respiratory 12 12 13 Rate Blood Pressure 130/77 130/78 129/78 Blood Pressure [Left] O2 Sat by Pulse 97 97 Oximetry 01/07/19 01/07/19 01/07/19 08:03 08:15 08:30 Temperature Pulse Rate 81 79 80 Respiratory 17 10 L 13 Rate Blood Pressure 129/78 117/82 115/81 Blood Pressure [Left] O2 Sat by Pulse 98 97 95 Oximetry 01/07/19 08:45 Temperature Pulse Rate 79 Respiratory 15 Rate Blood Pressure 111/73 Blood Pressure [Left] O2 Sat by Pulse 97 Oximetry ED Medical Decision Making - Lab Data Result diagrams: 01/07/19 05:06 01/07/19 05:06 Vital Signs 01/07/19 01/07/19 01/07/19 04:29 04:55 05:00 Temperature 97.9 F 97.9 F Pulse Rate 102 H 88 93 H Respiratory 18 12 15 Rate Blood Pressure 140/86 129/72 Blood Pressure 129/72 [Left] O2 Sat by Pulse 98 97 97 Oximetry 01/07/19 01/07/19 01/07/19 05:15 05:31 05:45 Temperature Pulse Rate 86 85 81 Respiratory 13 20 18 Rate Blood Pressure 139/83 137/84 131/88 Blood Pressure [Left] O2 Sat by Pulse 98 98 97 Oximetry 01/07/19 01/07/19 01/07/19 06:07 06:15 06:29 Temperature Pulse Rate 80 90 Respiratory 12 9 L 18 Rate Blood Pressure 125/82 117/67 Blood Pressure [Left] O2 Sat by Pulse 97 Oximetry 01/07/19 01/07/19 01/07/19 06:30 06:45 07:00 Temperature Pulse Rate 91 H 81 82 Respiratory 17 13 13 Rate Blood Pressure 121/81 134/81 119/72 Blood Pressure [Left] O2 Sat by Pulse 99 99 99 Oximetry 01/07/19 01/07/19 01/07/19 07:15 07:30 07:45 Temperature Pulse Rate 107 H 84 82 Respiratory 12 12 13 Rate Blood Pressure 130/77 130/78 129/78 Blood Pressure [Left] O2 Sat by Pulse 97 97 Oximetry 01/07/19 01/07/19 01/07/19 08:03 08:15 08:30 Temperature Pulse Rate 81 79 80 Respiratory 17 10 L 13 Rate Blood Pressure 129/78 117/82 115/81 Blood Pressure [Left] O2 Sat by Pulse 98 97 95 Oximetry 01/07/19 08:45 Temperature Pulse Rate 79 Respiratory 15 Rate Blood Pressure 111/73 Blood Pressure [Left] O2 Sat by Pulse 97 Oximetry Lab Results 01/07/19 01/07/19 01/07/19 Range/Units 05:06 05:06 05:06 WBC 8.5 (4.5-11.0) K/mm3 RBC 5.20 H (3.65-5.03) M/mm3 Hgb 13.4 (10.1-14.3) gm/dl Hct 40.3 (30.3-42.9) % MCV 77 L (79-97) fl MCH 26 L (28-32) pg MCHC 33 (30-34) % RDW 16.4 H (13.2-15.2) % Plt Count 269 (140-440) K/mm3 Lymph % (Auto) 34.3 (13.4-35.0) % [place] % (Auto) 7.8 H (0.0-7.3) % Eos % (Auto) 3.4 (0.0-4.3) % Baso % (Auto) 0.8 (0.0-1.8) % Lymph # 2.9 (1.2-5.4) K/mm3 [place] # 0.7 (0.0-0.8) K/mm3 Eos # 0.3 (0.0-0.4) K/mm3 Baso # 0.1 (0.0-0.1) K/mm3 Seg Neutrophils % 53.7 (40.0-70.0) % Seg Neutrophils # 4.6 (1.8-7.7) K/mm3 Sodium 139 (137-145) mmol/L Potassium 4.2 (3.6-5.0) mmol/L Chloride 99.5 (98-107) mmol/L Carbon Dioxide 23 (22-30) mmol/L Anion Gap 21 mmol/L BUN 12 (7-17) mg/dL Creatinine 0.7 (0.7-1.2) mg/dL Estimated GFR > 60 ml/min BUN/Creatinine Ratio 17 % Glucose 107 H (65-100) mg/dL Calcium 9.2 (8.4-10.2) mg/dL Total Bilirubin 0.30 (0.1-1.2) mg/dL AST 22 (5-40) units/L ALT 29 (7-56) units/L Alkaline Phosphatase 85 (35-129) units/L Total Protein 7.6 (6.3-8.2) g/dL Albumin 4.2 (3.9-5) g/dL Albumin/Globulin Ratio 1.2 % Lipase 27 (13-60) units/L Urine Color (Yellow) Urine Turbidity (Clear) Urine pH (5.0-7.0) Ur Specific [place] (1.003-1.030) Urine Protein (Negative) mg/dL Urine Glucose (UA) (Negative) mg/dL Urine Ketones (Negative) mg/dL Urine Blood (Negative) Urine Nitrite (Negative) Urine Bilirubin (Negative) Urine Urobilinogen (<2.0) mg/dL Ur Leukocyte Esterase (Negative) Urine WBC (Auto) (0.0-6.0) /HPF Urine RBC (Auto) (0.0-6.0) /HPF Urine HCG, Qual (Negative) 01/07/19 01/07/19 Range/Units Unknown Unknown WBC (4.5-11.0) K/mm3 RBC (3.65-5.03) M/mm3 Hgb (10.1-14.3) gm/dl Hct (30.3-42.9) % MCV (79-97) fl MCH (28-32) pg MCHC (30-34) % RDW (13.2-15.2) % Plt Count (140-440) K/mm3 Lymph % (Auto) (13.4-35.0) % [place] % (Auto) (0.0-7.3) % Eos % (Auto) (0.0-4.3) % Baso % (Auto) (0.0-1.8) % Lymph # (1.2-5.4) K/mm3 [place] # (0.0-0.8) K/mm3 Eos # (0.0-0.4) K/mm3 Baso # (0.0-0.1) K/mm3 Seg Neutrophils % (40.0-70.0) % Seg Neutrophils # (1.8-7.7) K/mm3 Sodium (137-145) mmol/L Potassium (3.6-5.0) mmol/L Chloride (98-107) mmol/L Carbon Dioxide (22-30) mmol/L Anion Gap mmol/L BUN (7-17) mg/dL Creatinine (0.7-1.2) mg/dL Estimated GFR ml/min BUN/Creatinine Ratio % Glucose (65-100) mg/dL Calcium (8.4-10.2) mg/dL Total Bilirubin (0.1-1.2) mg/dL AST (5-40) units/L ALT (7-56) units/L Alkaline Phosphatase (35-129) units/L Total Protein (6.3-8.2) g/dL Albumin (3.9-5) g/dL Albumin/Globulin Ratio % Lipase (13-60) units/L Urine Color Straw (Yellow) Urine Turbidity Clear (Clear) Urine pH 6.0 (5.0-7.0) Ur Specific [place] 1.008 (1.003-1.030) Urine Protein <15 mg/dl (Negative) mg/dL Urine Glucose (UA) Neg (Negative) mg/dL Urine Ketones Neg (Negative) mg/dL Urine Blood Neg (Negative) Urine Nitrite Neg (Negative) Urine Bilirubin Neg (Negative) Urine Urobilinogen < 2.0 (<2.0) mg/dL Ur Leukocyte Esterase Tr (Negative) Urine WBC (Auto) 2.0 (0.0-6.0) /HPF Urine RBC (Auto) < 1.0 (0.0-6.0) /HPF Urine HCG, Qual Negative (Negative) - EKG Data -: EKG Interpreted by Ar - EKG Data 01/07/19 10:08 EKG today shows a sinus rhythm, 78 bpm, normal axis, normal intervals, QTC within normal limits, the EKG is unremarkable, the EKG is not consistent with ST elevation myocardial infarction, the EKG appears to be unchanged from prior EKG from 05/21/2018. Neither EKG is consistent with STEMI - Radiology Data Radiology results: report reviewed, image reviewed - Medical Decision Making Differential diagnosis, including but not limited to: Radiculopathy, GERD, gastritis, hiatal hernia, lap band slippage, lap band malposition, reflux, dysphagia Assessment and plan: 43-year-old female with 2 complaints Right upper extremity paresthesias and paracervical pain, likely radiculopathy, does not demonstrate any evidence of neurovascular deficit. Unfortunately, patient is not an NSAID candidate secondary to her second complaint. Therefore, she will be given Tylenol. It was explained to the patient that given current opioid crisis and high potential for addiction habit formation, we would not recommend opiate or narcotic therapy at this time. The patient was counseled to follow up with her outpatient primary care doctor for evaluation for physical therapy, and [place] therapy, such as acupuncture and/or massage. She endorses secondary complaint of epigastric pain and abdominal pain. Her EKG is unchanged from prior, x-rays of the chest abdomen pelvis are unremarkable, she does not have pulmonary embolism or DVT risk factors and she is low risk by well's criteria, she was able to tolerate liquid feeds here in the emergency department, and she had a nuclear stress test which was negative earlier on this year. She appears quite comfortable on multiple repeat evaluations, and is noted to be playing on a cellular phone. Abdomen soft and benign, did not see i ndication for CT imaging at this time. In addition, we engaged patient and shared decision making, and I did offer her a CAT scan, for peace of mind, and for reassurance, however, the patient declined, out of concern for unnecessary radiation exposure Through shared decision making, we have come to this decision, and I think that this plan of care is reasonable. We discussed diet and lifestyle modifications, and the patient is strongly encouraged to follow up with her outpatient bariatric surgeon, and outpatient gastroenterology. Critical care attestation.: If time is entered above; I have spent that time in minutes in the direct care of this critically ill patient, excluding procedure time. ED Disposition Clinical Impression: Radicular pain in right arm, History of abdominal pain Disposition: TO HOME OR SELFCARE Is pt being admited?: No Does the pt Need Aspirin: No Condition: Stable Additional Instructions: Avoid consumption of Motrin, ibuprofen, Naprosyn, Aleve. Avoid consumption of heavy and/or spicy foods. Advance diet as tolerated. Take the pain medications, heart for medications, nausea medication as needed and directed. Recommend follow-up with a skimmer scoop operator within the next 10 days. Recommend follow-up with your bariatric surgeon within the next 10 days. Recommend follow-up with the primary care doctor within the next 4-6 weeks. Avoid heavy lifting, and participate in physical activities as tolerated. Patient may benefit from alternative complementary therapy, such as massage, and acupuncture, for presumed radicular pain in right upper extremity. Return to emergency room right away with projectile vomiting, change in mental status, confusion, or new, worsened or different symptoms not present on the initial emergency room evaluation. Referrals: ORLY ROSARIO MD [Primary Care Provider] - 3-5 Days PHAM VAIL MD [Staff Physician] - 3-5 Days GRACE SUÁREZ MD [Staff Physician] - 3-5 Days
--- NOTE | 2019-01-07 08:28 | XRay Report ---
XR ABDOMEN SERIES WITH CHEST X-RAY ONE VIEW INDICATION / CLINICAL INFORMATION: epigastric pain --> abd pain. COMPARISON: Abdominal radiograph 01/07/2019 at 5:15 AM, chest radiograph 05/21/2018 FINDINGS: A laparoscopic adjustable gastric band projects in the expected position and orientation. The port is implanted at the left lower quadrant, and the tubing appears intact. Cholecystectomy clips are noted . The abdominal gas pattern is unremarkable. No abnormal calcifications are seen. No evidence of pneu moperitoneum is present. Lung volumes are somewhat low, resulting in mild bibasilar atelectasis. Heart size is normal for AP t echnique. No pleural fluid or pneumothorax. Signer Name: Manuel Mendez MD Signed: 01/07/2019 8:23 AM Workstation Name: [id number]
[2019-01-07 08:48] VITALS: BP 111/73
== END 2019-01-07 10:21 | disposition home or self-care (01) ==
LOC: ED 04:26
DX: M54.12 Radiculopathy, cervical region (principal); R10.9 Unspecified abdominal pain; I11.0 Hypertensive heart disease with heart failure; I50.9 Heart failure, unspecified; M50.30 Other cervical disc degeneration, unspecified cervical region; Z90.49 Acquired absence of other specified parts of digestive tract; Z90.710 Acquired absence of both cervix and uterus; Z88.0 Allergy status to penicillin
CPT/HCPCS: 36415; 74019; 74022; 80053; 81001; 81025; 83690; 85025; 93005; 93010

== ENCOUNTER 2019-12-04 11:42 | Emergency (ER) | payer MEDICARE ==
[2019-12-04 12:04] VITALS: BP 163/88
--- NOTE | 2019-12-04 12:41 | Emergency Department Report ---
ED Abdominal Pain HPI - General Chief Complaint: Abdominal Pain Stated Complaint: BACK PAIN Time Seen by Provider: 12/04/19 12:40 Source: patient Mode of arrival: Ambulatory Limitations: No Limitations - History of Present Illness Initial Comments: 44 yr old female with pmhx of A fib and DDD in low back presents to ED c/o Low back pain radiating into lower abd. Patient states her symptoms started about 2 days ago. She denies any injury or strenous activity She states this pain feels different than he typical chronic low back pain associated with her DDD. She states its worse. She states that pain increases with movement. She states she vomitted x 2 yesterday, mainly nausea today and she has been constipated. She states her last normal BM was 5 days ago. She states she tried stool softeners last night without much relief. She reports urinary frequency but no other UTI symptoms. She denies any vag symptoms, fever, chills, chest pain, SOB or any other associated symptoms at this time. She states she has been taking tylenol for pain which she takes for her typical back pain but it has not been helping. She states she was being prescribed norco for her back pain but she took herself off it several months ago. She is s/p hysterectomy and lap band several yrs ago (but no longer active). MD Complaint: abdominal pain, other (low back pain) -: Gradual (2 days ago ) - Related Data Previous Rx's Medication Instructions Recorded Last Taken Type Docusate Sodium [Colace] 100 mg PO BID #30 capsule 12/04/19 Unknown Rx Methocarbamol [Robaxin] 500 mg PO TID PRN #20 tablet 12/04/19 Unknown Rx Tramadol HCl/Acetaminophen 1 each PO Q6H PRN #12 tablet 12/04/19 Unknown Rx [Ultracet Tablet] Allergies Allergy/AdvReac Type Severity Reaction Status Date / Time Penicillins Allergy Rash Verified 04/10/13 09:53 ED Review of Systems ROS: Stated complaint: BACK PAIN Other details as noted in HPI Constitutional: denies: chills, fever Respiratory: denies: cough, shortness of breath, wheezing Cardiovascular: denies: chest pain, palpitations Gastrointestinal: nausea, vomiting, constipation. denies: abdominal pain, diarrhea Genitourinary: denies: urgency, dysuria, discharge Musculoskeletal: back pain Skin: denies: rash, lesions Neurological: denies: headache, weakness, paresthesias Psychiatric: denies: anxiety, depression Hematological/Lymphatic: denies: easy bleeding, easy bruising ED Past Medical Hx - Past Medical History Previous Medical History?: Yes Hx Hypertension: Yes Hx Heart Attack/AMI: No Hx Congestive Heart Failure: Yes Hx Diabetes: No Hx Deep Vein Thrombosis: No Hx Pulmonary Embolism: No Hx Arthritis: No Hx Asthma: No Hx COPD: No Hx Tuberculosis: No Additional medical history: DDD (BACK). AFIB. Previous nuclear stress test noted in the EMR to be normal by cardiology. Past medical history of recurrent bronchitis - Surgical History Past Surgical History?: Yes Hx Coronary Stent: No Hx Pacemaker: No Hx Internal Defibrillator: No Hx Cholecystectomy: Yes Additional Surgical History: Hysterectomy, 2 . LAP BAND - Social History Smoking Status: Never Smoker Substance Use Type: None - Medications Home Medications: Home Medications Medication Instructions Recorded Confirmed Last Taken Type Docusate Sodium [Colace] 100 mg PO BID #30 capsule 12/04/19 Unknown Rx Methocarbamol [Robaxin] 500 mg PO TID PRN #20 tablet 12/04/19 Unknown Rx Tramadol HCl/Acetaminophen 1 each PO Q6H PRN #12 tablet 12/04/19 Unknown Rx [Ultracet Tablet] ED Physical Exam - General Limitations: No Limitations General appearance: alert, in no apparent distress - Head Head exam: Present: atraumatic, normocephalic - Respiratory Respiratory exam: Present: normal lung sounds bilaterally. Absent: respiratory distress - GI/Abdominal GI/Abdominal exam: Present: soft, tenderness (mild LLQ). Absent: distended, guarding, rebound - Rectal Rectal exam: Present: normal inspection, normal rectal tone. Absent: fecal impaction, hemorrhoids, tenderness - Extremities Exam Extremities exam: Present: normal inspection - Back Exam Back exam: Present: normal inspection, CVA tenderness (L) (mild ), paraspinal tenderness (mid lumbar), vertebral tenderness (mid lumbar), other (ROM mildly reduced due to pain; +SLR left leg at about 45 degrees). Absent: rash noted - Neurological Exam Neurological exam: Present: alert, oriented X3, CN II-XII intact. Absent: motor sensory deficit - Psychiatric Psychiatric exam: Present: normal affect, normal mood - Skin Skin exam: Present: intact ED Course Vital Signs 12/04/19 12:03 Temperature 98.6 F Pulse Rate 77 Respiratory 18 Rate Blood Pressure 163/88 [Right] O2 Sat by Pulse 99 Oximetry ED Medical Decision Making - Lab Data Result diagrams: 12/04/19 12:16 12/04/19 12:16 - Radiology Data Radiology results: report reviewed - Medical Decision Making Pt presented to ED c/o low back pain into low abd with associated constipation, nausea and vomitting x 2 Pt currently resting comfortably. She is in no acute distress. She is not toxic and well appearing. She is neurologically intact. There has been no vomiting during stay. labs reviewed - unremarkable CT show mod stool burden but otherwise normal and mild degenerative changes to her lumbar spine. Patient history, exam and current condition does not demonstrate any signs of appendicitis, AAA/disection, cauda equina, epidural abcess or epidural hematoma, bowel perforation, mesenteric ischemia, sepsis or any other serious etiology at this time requiring further testing, admission or emergent consult at this time Discussed results with patient. Recommend close f/u with PCP especially if her back pain continues as she may need MRI. Discussed treatment plan with patient. She is stable at this time for d/c. Critical care attestation.: If time is entered above; I have spent that time in minutes in the direct care of this critically ill patient, excluding procedure time. ED Disposition Clinical Impression: Constipation, Low back pain, DJD (degenerative joint disease), lumbar Disposition: DC-01 TO HOME OR SELFCARE Is pt being admited?: No Does the pt Need Aspirin: No Condition: Stable Instructions: Constipation (ED), High Fiber Diet (ED), Acute Low Back Pain (ED), Degenerative Disc Disease (ED) Additional Instructions: I recommend that you take medications as prescribed for pain. Take stool softene rs as prescribed especially if you are going to take pain medication. Increase your water intake. I recommend you follow up with your primary care physician in next 2-3 days. Return to ED if anything changes or worsens. Prescriptions: Docusate Sodium [Colace] 100 mg PO BID #30 capsule Methocarbamol [Robaxin] 500 mg PO TID PRN #20 tablet PRN Reason: Pain , Severe (7-10) Tramadol HCl/Acetaminophen [Ultracet Tablet] 1 each PO Q6H PRN #12 tablet PRN Reason: Pain , Severe (7-10) Referrals: MARTHA QUEVEDO [Primary Care Provider] - 3-5 Days Forms: Work/School Release Form(ED) Time of Disposition: 16:34
[2019-12-04 12:46] LABS: Basophils # (Auto) 0.1 K/mm3 (0.0-0.1); Eosinophils # (Auto) 0.2 K/mm3 (0.0-0.4); Eosinophils % (Auto) 2.7 % (0.0-4.3); Hematocrit 40.9 % (30.3-42.9); Hemoglobin 13.2 gm/dl (10.1-14.3); Lymphocytes # (Auto) 2.9 K/mm3 (1.2-5.4); Lymphocytes % (Auto) 32.7 % (13.4-35.0); Mean Corpuscular HGB Conc 32 % (30-34); Mean Corpuscular Volume 76 fl (79-97); Monocytes # (Auto) 0.5 K/mm3 (0.0-0.8); Monocytes % (Auto) 5.6 % (0.0-7.3); Platelet Count 272 K/mm3 (140-440); Red Blood Count 5.39 M/mm3 (3.65-5.03); Red Cell Distribution Width 15.3 % (13.2-15.2)
[2019-12-04 12:57] LABS: Alanine Aminotransferase 32 units/L (7-56); Albumin 4.3 g/dL (3.9-5); Blood Urea Nitrogen 13 mg/dL (7-17); Calcium 9.4 mg/dL (8.4-10.2); Hemolysis Index 5
[2019-12-04 12:58] LABS: BUN/Creatinine Ratio 26
[2019-12-04] MEDS ORDERED: ONDANSETRON 4 MG/2 ML INJ IV ONE (13:09)
[2019-12-04] MEDS ORDERED: MORPHINE 4 MG/1 ML INJ IV ONE (13:09)
[2019-12-04] MEDS ORDERED: SODIUM CHLORIDE 0.9% 1000 ML 1,000 ML IV ONE (13:10)
[2019-12-04 13:28] LABS: Bilirubin,Urine NEG (Negative); Blood,Urine NEG (Negative); Color,Urine Yellow (Yellow); Protein,Urine <15 mg/dL mg/dL (Negative); Urobilinogen,Urine < 2.0 mg/dL (<2.0); WBC,Urine < 1.0 /HPF (0.0-6.0)
--- NOTE | 2019-12-04 16:21 | Cat Scan Report ---
CT ABDOMEN AND PELVIS WITH IV CONTRAST INDICATION: MAIN. Abdominal pain COMPARISON: None available. TECHNIQUE: Axial CT images were obtained through the abdomen and pelvis after 100 mL IV contrast. All CT scans a t this location are performed using CT dose reduction for ALARA by means of automated exposure contro l. FINDINGS -- ABDOMEN: Lung Bases: No acute abnormality. Liver: Normal. Gallbladder: Removed. Bile Ducts: Normal. Pancreas: Normal. Spleen: Normal. Adrenals: Normal. Right Kidney and Proximal Ureter: Normal. Left Kidney and Proximal Ureter: Normal. Stomach and Bowel: Gastric sleeve noted within the superior aspect of the stomach near the GE junctio n.. Lymph Nodes: No significant adenopathy. Aorta: No significant abnormality. IVC: Normal. Additional Findings: None. FINDINGS -- PELVIS: Urinary Bladder and Distal Ureters: Normal. Reproductive Organs: No acute abnormality. Appendix: Not well identified. Bowel: No acute abnormality. Moderate stool burden identified through out the colon Free Fluid: None. Lymph Nodes: No significant adenopathy. Additional Findings: None. Skeletal System: No acute abnormality. Minimal to mild thoracolumbar degenerative changes of the lowe r lumbar spine. IMPRESSION: 1. No acute process in the abdomen or pelvis. Moderate stool burden identified throughout the colon. Small fat-containing periumbilical hernia. Signer Name: Mateus Auguste MD Signed: 12/04/2019 4:16 PM Workstation Name: [email or web address]
== END 2019-12-04 16:48 | disposition home or self-care (01) ==
LOC: ED 11:42
DX: M47.896 Other spondylosis, lumbar region (principal); K59.00 Constipation, unspecified; I11.0 Hypertensive heart disease with heart failure; I50.9 Heart failure, unspecified; Z90.49 Acquired absence of other specified parts of digestive tract; Z90.710 Acquired absence of both cervix and uterus; Z88.0 Allergy status to penicillin
CPT/HCPCS: 36415; 74177; 80053; 81001; 83690; 84703; 85025; 96361; 96374; 96375; 99284; J2270; J2405; J7030; Q9967

== ENCOUNTER 2020-05-17 22:43 | Emergency (ER) | payer MEDICARE ==
--- NOTE | 2020-05-17 23:18 | Event Note ---
ED Screening Note Date of service: 05/17/20 Time: 23:16 ED Screening Note: Patient is a 45-year-old white female with a history of hypertension and morbid obesity presents to the ED with complaint of acute onset persistent dizziness, lightheadedness, headache, nausea and vomiting and a single syncopal episode 2 days ago. Patient states that the symptoms have been persistent and in the last 12 hours the dizziness is especially worse with any movement. Patient states that she just got discharged from [facility] 4 days ago after staying there for 6 days for evaluation and is currently on a cardiac rehabilitation specialist remotely. Patient denies chest pain, abdominal pain, diarrhea, change in vision, loss of consciousness, fever, chills, cough, sore throat or dysuria and urinary frequency and urgency or seizure. This initial assessment/diagnostic orders/clinical plan/treatment(s) is/are subj ect to change based on patients health status, clinical progression and re- assessment by fellow clinical providers in the ED. Further treatment and workup at subsequent clinical providers discretion. Patient/guardian urged not to elope from the ED as their condition may be serious if not clinically assessed and managed. Initial orders include: CBC, CMP, chest x-ray, CT head w/o contrast, BNP
[2020-05-17 23:35] VITALS: BP 101/73
--- NOTE | 2020-05-17 23:43 | XRay Report ---
CHEST 1 VIEW 05/17/2020 11:46 PM INDICATION / CLINICAL INFORMATION: Dyspnea, dizziness, syncope. COMPARISON: 05/21/2018 FINDINGS: SUPPORT DEVICES: None. HEART / MEDIASTINUM: No significant abnormality. LUNGS / PLEURA: No significant pulmonary or pleural abnormality. No pneumothorax. ADDITIONAL FINDINGS: No significant additional findings. IMPRESSION: 1. No acute findings. Signer Name: Jacob Byers MD Signed: 05/17/2020 11:39 PM Workstation Name: [email or web address]
--- NOTE | 2020-05-17 23:51 | Cat Scan Report ---
CT head/brain wo con INDICATION: syncope, dizziness. TECHNIQUE: Routine CT head without contrast. All CT scans at this location are performed using CT dos e reduction for ALARA by means of automated exposure control. COMPARISON: None. FINDINGS: BRAIN / INTRACRANIAL CONTENTS: No acute hemorrhage, mass effect, midline shift, or hydrocephalus. No appreciable acute large territorial or lacunar infarct. No chronic infarct or focal atrophy. Normal b rain volume and ventricular/sulcal size for age. ORBITS: No significant abnormality of visualized orbits. SINUSES / MASTOIDS: No significant abnormality of visualized sinuses and mastoid air cells. ADDITIONAL FINDINGS: None. IMPRESSION: 1. No acute intracranial abnormality. Signer Name: Jacob Byers MD Signed: 05/17/2020 11:47 PM Workstation Name: [id number]
--- NOTE | 2020-05-18 00:04 | Emergency Department Report ---
ED Dizziness HPI - General Chief Complaint: Dizziness Stated Complaint: LIGHTHEADED;DIZZY Time Seen by Provider: 05/17/20 23:43 Source: patient Mode of arrival: Ambulatory Limitations: No Limitations - History of Present Illness Initial Comments: Patient is a 45-year-old female that presents emergency room with complaints of dizziness and lightheadedness x2 days. Patient states she is also near syncopal. Patient states she never lost consciousness or passed out completely. Patient states that her symptoms are becoming more frequent. Patient states that she is feeling fine right now. Patient states her symptoms are better with rest. Patient states her symptoms are worse with movement and exertion. Patient states she had a recent Covid exposure. Patient states 1 week ago she spent 6 days at [facility] for shortness of breath and palpitations. Patient states she is currently wearing a 30-day Holter monitor. Patient states while she was in the hospital they also did an EGD and a colonoscopy and took a stomach biopsy for her stomach ulcers. Patient states they placed her on Protonix and sucralfate. Patient states that she is not having any further shortness of breath or palpitations at this time. Patient denies chest pain or shortness of breath. Patient denies abdominal pain. Patient denies headache. Patient denies blurry vision. Patient denies neck stiffness. Patient denies fever and chills. Patient denies cough. Patient denies diarrhea. Patient denies diaphoresis. Patient denies loss of smell. Patient denies sore throat. Patient denies recent travel. Patient denies recent international travel. Patient states she has a past medical history of paroxysmal A. fib, hypertension, GERD, depression and hyperlipidemia. Patient states she is not currently taking any high blood pressure medications or medications for atrial fibrillation. Patient states he sees a special tester. Patient states he has had a normal heart rate and rhythm and blood pressure for quite some time.. Complaint: dizziness, lightheadedness, near syncope -: Sudden Timing: now resolved Description: lightheadedness, near-syncope History of Same: No History of Trauma: No Severity: severe Improves With: rest Worsens With: position, exertion Associated Symptoms: denies: ataxia, chest pain, confusion, cough, diaphoresis, fever/chills, loss of appetite, malaise, rash, seizure, shortness of breath, syncope, weakness - Related Data Previous Rx's Medication Instructions Recorded Last Taken Type Docusate Sodium [Colace] 100 mg PO BID #30 capsule 12/04/19 Unknown Rx Methocarbamol [Robaxin] 500 mg PO TID PRN #20 tablet 12/04/19 Unknown Rx Tramadol HCl/Acetaminophen 1 each PO Q6H PRN #12 tablet 12/04/19 Unknown Rx [Ultracet Tablet] Allergies Allergy/AdvReac Type Severity Reaction Status Date / Time Penicillins Allergy Rash Verified 04/10/13 09:53 ED Review of Systems ROS: Stated complaint: LIGHTHEADED;DIZZY Other details as noted in HPI Constitutional: denies: chills, fever Eyes: denies: eye pain, eye discharge, vision change ENT: denies: ear pain, throat pain Respiratory: denies: cough, shortness of breath, wheezing Cardiovascular: denies: chest pain, palpitations Endocrine: no symptoms reported Gastrointestinal: denies: abdominal pain, nausea, diarrhea Genitourinary: denies: urgency, dysuria, discharge Musculoskeletal: denies: back pain, joint swelling, arthralgia Skin: denies: rash, lesions Neurological: denies: headache, weakness, paresthesias Psychiatric: denies: anxiety, depression Hematological/Lymphatic: denies: easy bleeding, easy bruising ED Past Medical Hx - Past Medical History Previous Medical History?: Yes Hx Hypertension: Yes Hx Heart Attack/AMI: No Hx Congestive Heart Failure: Yes Hx Diabetes: No Hx Deep Vein Thrombosis: No Hx Pulmonary Embolism: No Hx GERD: Yes Hx Arthritis: No Hx Psychiatric Treatment: Yes (Depression on Zoloft) Hx Asthma: No Hx COPD: No Hx Tuberculosis: No Additional medical history: DDD (BACK). AFIB. Previous nuclear stress test noted in the EMR to be normal by cardiology. Past medical history of recurrent bronchitis. Hyperlipidemia - Surgical History Hx Coronary Stent: No Hx Pacemaker: No Hx Internal Defibrillator: No Hx Cholecystectomy: Yes Additional Surgical History: Hysterectomy, 2 . LAP BAND - Social History Smoking Status: Never Smoker Substance Use Type: None - Medications Home Medications: Home Medications Medication Instructions Recorded Confirmed Last Taken Type Docusate Sodium [Colace] 100 mg PO BID #30 capsule 12/04/19 Unknown Rx Methocarbamol [Robaxin] 500 mg PO TID PRN #20 tablet 12/04/19 Unknown Rx Tramadol HCl/Acetaminophen 1 each PO Q6H PRN #12 tablet 12/04/19 Unknown Rx [Ultracet Tablet] ED Physical Exam - General Limitations: No Limitations General appearance: alert, in no apparent distress - Head Head exam: Present: atraumatic, normocephalic - Eye Eye exam: Present: normal appearance, PERRL Pupils: Present: normal accommodation - ENT ENT exam: Present: mucous membranes moist - Neck Neck exam: Present: normal inspection - Respiratory Respiratory exam: Present: normal lung sounds bilaterally. Absent: respiratory distress, wheezes, rales - Cardiovascular Cardiovascular Exam: Present: regular rate, normal rhythm, normal heart sounds. Absent: systolic murmur, diastolic murmur, rubs, gallop - GI/Abdominal GI/Abdominal exam: Present: soft, normal bowel sounds. Absent: distended, tenderness, guarding - Rectal Rectal exam: Present: deferred - Extremities Exam Extremities exam: Present: normal inspection - Back Exam Back exam: Present: normal inspection - Neurological Exam Neurological exam: Present: alert, oriented X3, CN II-XII intact, normal gait. Absent: motor sensory deficit - Psychiatric Psychiatric exam: Present: normal affect, normal mood - Skin Skin exam: Present: warm, dry, intact, normal color. Absent: rash ED Course Vital Signs 05/17/20 23:24 Temperature 98.1 F Pulse Rate 94 H Respiratory 20 Rate Blood Pressure 101/73 O2 Sat by Pulse 96 Oximetry - Reevaluation(s) Reevaluation #1: I discussed all results and clinical findings with patient. I discussed plan of care with patient. Patient agrees with plan of care. Patient is stable for discharge. Patient will be discharged home. Patient given discharge instructions. Patient voiced understanding of discharge instructions. 05/18/20 04:27 ED Medical Decision Making - Lab Data Result diagrams: 05/18/20 00:00 05/18/20 00:00 - EKG Data -: EKG Interpreted by Me EKG shows normal: sinus rhythm, axis, intervals, QRS complexes, ST-T waves Rate: normal - Radiology Data Radiology results: report reviewed, image reviewed interpreted by me: Chest x-ray: No pneumonia, no pneumothorax, no foreign body, no osseous findings, no acute findings CHEST 1 VIEW 05/17/2020 11:46 PM INDICATION / CLINICAL INFORMATION: Dyspnea, dizziness, syncope. COMPARISON: 05/21/2018 FINDINGS: SUPPORT DEVICES: None. HEART / MEDIASTINUM: No significant abnormality. LUNGS / PLEURA: No significant pulmonary or pleural abnormality. No pneumothorax. ADDITIONAL FINDINGS: No significant additional findings. IMPRESSION: 1. No acute findings. CT head/brain wo con INDICATION: syncope, dizziness. TECHNIQUE: Routine CT head without contrast. All CT scans at this location are performed using CT dose reduction for ALARA by means of automated exposure control. COMPARISON: None. FINDINGS: BRAIN / INTRACRANIAL CONTENTS: No acute hemorrhage, mass effect, midline shift, or hydrocephalus. No appreciable acute large territorial or lacunar infarct. No chronic infarct or focal atrophy. Normal brain volume and ventricular/sulcal size for age. ORBITS: No significant abnormality of visualized orbits. SINUSES / MASTOIDS: No significant abnormality of visualized sinuses and mastoid air cells. ADDITIONAL FINDINGS: None. IMPRESSION: 1. No acute intracranial abnormality. CTA CHEST WITH IV CONTRAST INDICATION: Dizziness, elevated d-dimer. TECHNIQUE: Axial CT images were obtained through the chest after injection of 100 cc Omnipaque 350 IV contrast. 3 plane MIP reconstructions were produced. All CT scans at this location are performed using CT dose reduction for ALARA by means of automated exposure control. COMPARISON: 05/21/2018 FINDINGS: Pulmonary Arteries: No pulmonary emboli. Lungs: There is a 6 mm perifissural nodule along the right minor fissure. This is stable compared with prior study on 05/21/2018 consistent with a benign etiology. Lungs are otherwise clear. Trachea and Bronchi: No significant abnormality. Heart and Pericardium: No significant abnormality. Vasculature: No significant abnormality. Lymphatics: No lymphadenopathy. Additional Findings: There is a 2.1 cm nodule in the left thyroid lobe. Upper Abdomen: No acute findings. Previous cholecystectomy and adjustable gastric band placement. Skeletal Structures: No acute findings or aggressive bone lesions. IMPRESSION: 1. No CT evidence for pulmonary embolism. 2. No acute findings. 3. Incidental thyroid nodule in the left lobe measuring 2.1 cm in a patient equal to or over age 35. Recommendation based on ACR guidelines: Diagnostic thyroid ultrasound. - Medical Decision Making Patient is a 45-year-old female that presents emergency room with complaints of dizziness and near syncope. Patient for 2 days. Patient was recently in another hospital for 6 days for shortness of breath and palpation. Patient currently has a Holter monitor on for 30 days from a special tester. Patient had labs done which were essentially unremarkable. Due to the patient's dizziness and recent shortness of breath a D-dimer was done and it was elevated. Patient then had a CTA of the chest and it was negative for acute finding except for a thyroid nodule. Patient serologically followed up as an outpatient. Patient had a head CT for dizziness to rule out acute intracranial process and the head CT was negative for acute findings. Patient had a chest x-ray and it was negative for acute findings. Patient is stable for discharge. Patient discharged home. - Differential Diagnosis Dizziness, lightheaded, near syncope, electrolyte imbalance, dehydration Critical care attestation.: If time is entered above; I have spent that time in minutes in the direct care of this critically ill patient, excluding procedure time. ED Disposition Clinical Impression: Dizziness, Near syncope, Elevated d-dimer, Shortness of breath Disposition: DC-01 TO HOME OR SELFCARE Is pt being admited?: No Does the pt Need Aspirin: No Condition: Stable Instructions: Near-Syncope, [id number], Shortness of Breath, Adult, [id number], Dizziness, [id number] Additional Instructions: Patient to follow-up with primary care in 2 to 3 days. Patient to follow-up with special tester and neurologist in 2 to 3 days. Patient have a primary care follow-up on thyroid nodule. Patient to rest. Patient to increase water. Patient to avoid strenuous exercise or heavy lifting until cleared by special tester and neurologist. Patient to take Tylenol or ibuprofen as needed for pain. Patient to continue all medications. Patient to return to the ER if condition worsens, changes or new symptoms arise. Patient to follow-up with special tester for 30-day Holter monitor. Referrals: ORLY ROSARIO MD [Primary Care Provider] - 2-3 Days KRYSTLE ELIZONDO MD [Staff Physician] - 2-3 Days Time of Disposition: 04:28
[2020-05-18 00:41] LABS: Basophils # (Auto) 0.1 K/mm3 (0.0-0.1); Eosinophils # (Auto) 0.3 K/mm3 (0.0-0.4); Eosinophils % (Auto) 3.1 % (0.0-4.3); Hematocrit 36.7 % (30.3-42.9); Hemoglobin 12.7 gm/dl (10.1-14.3); Lymphocytes # (Auto) 3.5 K/mm3 (1.2-5.4); Lymphocytes % (Auto) 36.4 % (13.4-35.0); Mean Corpuscular HGB Conc 35 % (30-34); Mean Corpuscular Volume 77 fl (79-97); Monocytes # (Auto) 0.8 K/mm3 (0.0-0.8); Monocytes % (Auto) 8.9 % (0.0-7.3); Platelet Count 285 K/mm3 (140-440); Red Blood Count 4.79 M/mm3 (3.65-5.03); Red Cell Distribution Width 16.3 % (13.2-15.2)
[2020-05-18 01:07] LABS: Alanine Aminotransferase 47 units/L (7-56); Albumin 4.1 g/dL (3.9-5); Blood Urea Nitrogen 13 mg/dL (7-17); Calcium 9.5 mg/dL (8.4-10.2); Hemolysis Index 2
[2020-05-18 01:08] LABS: BUN/Creatinine Ratio 19
[2020-05-18] MEDS ORDERED: HYDROmorphone 1 MG/1 ML INJ IV ONE (03:06)
--- NOTE | 2020-05-18 04:07 | Cat Scan Report ---
CTA CHEST WITH IV CONTRAST INDICATION: Dizziness, elevated d-dimer. TECHNIQUE: Axial CT images were obtained through the chest after injection of 100 cc Omnipaque 350 IV contrast. 3 plane MIP reconstructions were produced. All CT scans at this location are performed using CT dose reduction for ALARA by means of automated exposure control. COMPARISON: 05/21/2018 FINDINGS: Pulmonary Arteries: No pulmonary emboli. Lungs: There is a 6 mm perifissural nodule along the right minor fissure. This is stable compared wit h prior study on 05/21/2018 consistent with a benign etiology. Lungs are otherwise clear. Trachea and Bronchi: No significant abnormality. Heart and Pericardium: No significant abnormality. Vasculature: No significant abnormality. Lymphatics: No lymphadenopathy. Additional Findings: There is a 2.1 cm nodule in the left thyroid lobe. Upper Abdomen: No acute findings. Previous cholecystectomy and adjustable gastric band placement. Skeletal Structures: No acute findings or aggressive bone lesions. IMPRESSION: 1. No CT evidence for pulmonary embolism. 2. No acute findings. 3. Incidental thyroid nodule in the left lobe measuring 2.1 cm in a patient equal to or over age 35. Recommendation based on ACR guidelines: Diagnostic thyroid ultrasound. Signer Name: Jacob Byers MD Signed: 05/18/2020 4:02 AM Workstation Name: [email or web address]
== END 2020-05-18 04:41 | disposition home or self-care (01) ==
LOC: ED 22:43
DX: R55 Syncope and collapse (principal); R42 Dizziness and giddiness; R06.02 Shortness of breath; R79.89 Other specified abnormal findings of blood chemistry; I11.0 Hypertensive heart disease with heart failure; I50.9 Heart failure, unspecified; K21.9 Gastro-esophageal reflux disease without esophagitis; F32.9 Major depressive disorder, single episode, unspecified; Z90.710 Acquired absence of both cervix and uterus; Z98.890 Other specified postprocedural states; Z79.899 Other long term (current) drug therapy; Z88.0 Allergy status to penicillin
CPT/HCPCS: 36415; 70450; 71045; 71275; 80053; 83880; 84484; 85025; 85379; 93005; 96374; 99284; J1170; Q9967

== ENCOUNTER 2021-06-28 11:07 | Emergency (ER) | payer SELFPAY ==
[2021-06-28 11:22] VITALS: BP 136/87
[2021-06-28] MEDS ORDERED: CYCLOBENZAPRINE 10 MG TAB PO ONE (11:40)
[2021-06-28] MEDS ORDERED: KETOROLAC 60 MG/2 ML INJ IM ONE (11:40)
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
== END 2021-06-28 14:13 | disposition home or self-care (01) ==
LOC: ED 11:07
DX: S13.4XXA Sprain of ligaments of cervical spine, initial encounter (principal); S49.91XA Unspecified injury of right shoulder and upper arm, initial encounter; S39.92XA Unspecified injury of lower back, initial encounter; I10 Essential (primary) hypertension; Z88.0 Allergy status to penicillin; V89.2XXA Person injured in unspecified motor-vehicle accident, traffic, initial encounter; Y93.89 Activity, other specified; Y92.89 Other specified places as the place of occurrence of the external cause; Y99.8 Other external cause status
CPT/HCPCS: 72040; 72100; 73030; 96372; 99283; J1885